=== PATIENT | female | born 1950 | race American Indian/Alaskan Native ===

== ENCOUNTER 2016-10-20 16:52 | Inpatient (IN) | payer MEDICARE ==
[2016-10-20] MEDS ORDERED: BUMEX IV ONE (18:06)
--- NOTE | 2016-10-20 18:06 | Emergency Department Report ---
HPI - General Chief Complaint: Dyspnea/Respdistress Time Seen by Provider: 10/20/16 17:44 - HPI HPI: 66-year-old -[place] female, presents to ER with severe lower extremity swelling, abdominal area swelling, shortness of breath. She stated her symptoms have been going on since Monday 3 days ago, but have gotten worse today. Patient is bed bound due to weakness, and is currently receiving physical therapy for this symptom. Patient will, irrigated medical history including high blood pressure, hepatitis C, CHF, chronic back pain requiring Dilaudid at home. Patient had a hospitalization in July and August 2016 for similar symptoms. After that hospitalization she went to rehabilitation, but still has not walked. ED Past Medical Hx - Past Medical History Previous Medical History?: Yes Hx Hypertension: Yes Hx Congestive Heart Failure: Yes Hx Liver Disease: Yes (HEP C) Hx COPD: Yes Additional medical history: AFIB - Surgical History Past Surgical History?: Yes - Family History Family history: hypertension - Social History Smoking Status: Former Smoker Substance Use Type: None - Medications Home Medications: Home Medications Medication Instructions Recorded Confirmed Last Taken Type Carvedilol Nicu (1.67 mg/ml) 25 mg PO BID 10/20/16 10/20/16 Unknown History [Coreg NICU dilution] Hydromorphone HCl [Dilaudid] 1 tab PO DAILY 10/20/16 10/20/16 Unknown History Ondansetron HCl [Ondansetron HCl] 1 tab PO DAILY 10/20/16 10/20/16 Unknown History Warfarin [Coumadin] 2 mg PO QDAY 10/20/16 10/20/16 Unknown History fentaNYL [fentaNYL] 1 each TRANSDERMA UNK 10/20/16 10/20/16 Unknown History ED Review of Systems ROS: Stated complaint: DIFFICULTY BREATHING/SWELLING Other details as noted in HPI Comment: All other systems reviewed and negative Cardiovascular: chest pain, dyspnea on exertion, orthopnea, edema, paroxysmal nocturnal dyspnea Gastrointestinal: as per HPI Genitourinary: as per HPI Physical Exam - Physical Exam Vital Signs: Vital Signs 10/20/16 17:36 Temperature 98.2 F Pulse Rate 80 Respiratory 18 Rate Blood Pressure 131/87 O2 Sat by Pulse 96 Oximetry Physical Exam: Gen. alert and oriented 3 in no distress, obese patient, appears obviously swollen Head atraumatic normocephalic Eyes PERR LA EOMI Chest regular rate and rhythm normal S1-S2 lungs decreased breath sound bilaterally Abdomen soft, soft tissue distention, no tenderness. Back no point tenderness paravertebral tenderness Neuro decreased upper and lower extremity strength, nonambulatory. Psych normal mood. Extremities: greater than 4+ edema bilaterally ED Course Vital Signs 10/20/16 17:36 Temperature 98.2 F Pulse Rate 80 Respiratory 18 Rate Blood Pressure 131/87 O2 Sat by Pulse 96 Oximetry - Reevaluation(s) Reevaluation #1: 10/20/16 18:05 Nurses reports that she was unable to obtain IV access after several tries. ER Dea placed a right EJ IV access without difficulty. Patient tolerated procedure well. ED Medical Decision Making - Lab Data Result diagrams: 10/20/16 18:00 10/20/16 18:00 Critical care attestation.: If time is entered above; I have spent that time in minutes in the direct care of this critically ill patient, excluding procedure time. ED Disposition Clinical Impression: Acute exacerbation of CHF (congestive heart failure) Disposition: OP ADMIT IP TO THIS HOSP Is pt being admited?: Yes Does the pt Need Aspirin: No Condition: Stable Referrals: PRIMARY CARE, [Primary Care Provider] - 3-5 Days
[2016-10-20 18:22] LABS: Basophils % (Auto) 0.4 % (0.0-1.8); Eosinophils % (Auto) 1.8 % (0.0-4.3); Mean Corpuscular HGB Conc 30 % (30-34); Mean Corpuscular Hemoglobin 27 pg (28-32); Mean Corpuscular Volume 90 fl (79-97); Platelet Count 146 K/mm3 (140-440); Red Blood Count 3.92 M/mm3 (3.65-5.03); Red Cell Distribution Width 17.7 % (13.2-15.2); White Blood Count 5.7 K/mm3 (4.5-11.0)
[2016-10-20 18:32] LABS: INR 2.01 (0.87-1.13)
[2016-10-20 18:33] LABS: Partial Thromboplastin Time 38.1 Sec. (24.2-36.6)
[2016-10-20 18:34] LABS: Hematocrit 35.2 % (30.3-42.9); Hemoglobin 10.7 gm/dl (10.1-14.3)
[2016-10-20 18:51] LABS: BUN/Creatinine Ratio 23.7; Calcium 7.8 mg/dL (8.4-10.2); Chloride 98.4 mmol/L (98-107); Potassium 4.3 mmol/L (3.6-5.0)
[2016-10-20 18:56] LABS: Creatine Kinase 132 units/L (30-135)
--- NOTE | 2016-10-20 19:09 | Admit Criteria Form ---
Admission Criteria Documentation: HEART FAILURE: COMMON COMPLICATIONS Clinical Indications for Inpatient Care (inaja/check or initial the applicable condition/criteria): Ongoing inpatient care may be indicated for heart failure with 1 or more of the following (1)(2)(3)(4)(5)(6)(7)(8): [ ]I. New-onset heart failure [ ]II. Acute cardiac ischemia causing or associated with failure [ ]III. Ongoing need for care for primary condition requiring frequent therapy adjustments because of changes in cardiac function (eg, drug dosage changes for drugs that are renally metabolized) [X ]IV. Complications of heart failure, including 1 or more of the following: [ ]a) Hemodynamic instability [ ]b) Pericardial effusion [ ]c) Symptomatic pleural effusion(16) [ ]d) Hypoxemia [ ]e) Tachypnea [X]f) Dyspnea [ ]g) Syncope [ ]h) Altered mental status [ ]i) Acute renal insufficiency that is severe (reduction of more than 50% in estimated glomerular filtration rate from baseline) or progressive (reduction of more than 25% in estimated glomerular filtration rate from baseline, with creatinine continuing to rise) [ ]j) Debilitating anasarca (eg tissue breakdown with infection, inability to void due to edema)(E) (17) [ ]k) Clinically significant metabolic abnormalities due to heart failure (e.g., new-onset metabolic acidosis) Extended stay may be needed until ALL of the following are present(1)(3)(18)(41) (55): [ ]a) Hemodynamic stability [ ]b) Stable and effective diuretic regimen established (or patient on stable dialysis regimen if in chronic renal failure) [ ]c) Volume status acceptable on oral medication [ ]d) Breathing comfortably at rest [ ]e) Saturation of arterial oxygen greater than 90% or at acceptable baseline [ ]f) Pulmonary edema absent or improved [ ]g) Peripheral or sacral edema absent or improved [ ]h) Renal function stable and manageable at a lower level of care [ ]i) Complications (e.g., pleural effusion) resolved or manageable at a lower level of care [ ]j) Patient or caregiver has received written discharge instructions or educational material addressing activity level, diet, discharge medications, follow-up appointment, weight monitoring, and what to do if symptoms worsen. (56)(57)(58) The original [facility] [employer] content created by Alee Saab has been revised. The portions of the content which have been revised are identified through the use of italic text or in bold, and Alee Saab has neither reviewed nor approved the modified material.All other unmodified content is copyright [facility] [employer]. Please see references footnoted in the original [facility] edition 2017 Admission Criteria Met: Yes
[2016-10-20] MEDS ORDERED: DILAUDID IV ONE (19:58)
--- NOTE | 2016-10-20 23:44 | History and Physical Report ---
History of Present Illness Date of examination: 10/20/16 History of present illness: 66-year-old man with a history of CHF, hypertension, COPD, hep C, A. everton comes emergency room with complaints of diffuse swelling all over, shortness of breath , PND, dyspnea on exertion. States that she is compliant with her medications Review of systems Constitutional: no fever, no chills, no weight loss Ears, eyes, nose, mouth and throat: no nasal congestion, no nasal discharge, no sinus pressure, no vision change, no red eye. Neck: No neck pain or rigidity. Cardiovascular: chest pain, no palpitations, no leg swelling Respiratory: No cough, no congestion, no wheezing Gastrointestinal: abdominal pain, hematochezia, no nausea, no vomiting Genitourinary : no dysuria, frequency , no hematuria Musculoskeletal: no joint swelling or muscle ache Integumentary: no rash, no pruritis Neurological: no parathesias, no numbness, no focal weakness Endocrine: no cold or heat intolerance, no polyuria or polydipsia Hematologic/Lymphatic: no easy bruising, no easy bleeding, no gland swelling Allergic/Immunologic: no urticaria, no angioedema. PAST MEDICAL HISTORY:CHF, hypertension, COPD, hep C, A. fib PAST SURGICAL HISTORY: Hernia repair FAMILY HISTORY: Hypertension SOCIAL HISTORY: Denies alcohol, tobacco, drugs Medications and Allergies Allergies Allergy/AdvReac Type Severity Reaction Status Date / Time zolpidem tartrate Allergy Unknown Verified 10/20/16 17:42 [From Ambien] codeine AdvReac Unknown Verified 10/20/16 17:42 Home Medications Medication Instructions Recorded Confirmed Last Taken Type Carvedilol Nicu (1.67 mg/ml) 25 mg PO BID 10/20/16 10/20/16 Unknown History [Coreg NICU dilution] Hydromorphone HCl [Dilaudid] 1 tab PO DAILY 10/20/16 10/20/16 Unknown History Ondansetron HCl [Ondansetron HCl] 1 tab PO DAILY 10/20/16 10/20/16 Unknown History Warfarin [Coumadin] 2 mg PO QDAY 10/20/16 10/20/16 Unknown History fentaNYL [fentaNYL] 1 each TRANSDERMA UNK 10/20/16 10/20/16 Unknown History Exam - Physical Exam Narrative exam: Gen. appearance: Patient lying in bed, no apparent distress HEENT: Normocephalic, atraumatic, pupils equally round and reactive to light, extraocular movement intact, and no sclericterus,. No JVD or thyromegaly or nodule,neck supple, no carotid bruit ,mucous membranes moist, no exudate or erythema Heart: S1, S2, regular rate and rhythm Lungs: Crackles bilaterally, breathing comfortable Abdomen: Positive bowel sounds, nontender, nondistended, no organomegaly Extremity: + edema, no cyanosis, clubbing Skin: No rash, nodules, warm, dry Neuro: Oriented 3, cranial nerves II-12 intact, speech is fluent, motor and sensory intact - Constitutional Vitals: Temp Pulse Resp BP Pulse Ox 98.2 F 72 10 L 126/63 100 10/20/16 17:36 10/20/16 22:58 10/20/16 22:58 10/20/16 22:58 10/20/16 22:58 Results - Labs CBC & Chem 7: 10/21/16 05:46 10/21/16 05:46 Labs: Abnormal lab results 10/20/16 10/20/16 10/20/16 Range/Units 18:00 18:00 18:00 MCH 27 L (28-32) pg RDW 17.7 H (13.2-15.2) % Lymph % (Auto) 11.9 L (13.4-35.0) % [place] % (Auto) 11.2 H (0.0-7.3) % Lymph # 0.7 L (1.2-5.4) K/mm3 Seg Neutrophils % 74.7 H (40.0-70.0) % PT 23.8 H (12.2-14.9) Sec. INR 2.01 H (0.87-1.13) APTT 38.1 H (24.2-36.6) Sec. BUN 64 H (7-17) mg/dL Creatinine 2.7 H (0.7-1.2) mg/dL Glucose 126 H (65-100) mg/dL Calcium 7.8 L (8.4-10.2) mg/dL NT-Pro-B Natriuret Pep (0-900) pg/mL 10/20/16 Range/Units 18:00 MCH (28-32) pg RDW (13.2-15.2) % Lymph % (Auto) (13.4-35.0) % [place] % (Auto) (0.0-7.3) % Lymph # (1.2-5.4) K/mm3 Seg Neutrophils % (40.0-70.0) % PT (12.2-14.9) Sec. INR (0.87-1.13) APTT (24.2-36.6) Sec. BUN (7-17) mg/dL Creatinine (0.7-1.2) mg/dL Glucose (65-100) mg/dL Calcium (8.4-10.2) mg/dL NT-Pro-B Natriuret Pep 6946 H (0-900) pg/mL - Imaging and Cardiology EKG: image reviewed Chest x-ray: image reviewed Assessment and Plan Assessment Acute on chronic heart failure, probably systolic A. fib on Coumadin Chronic kidney disease Hypertension COPD Plan Admit to medicine Diuresed with IV Lasix, start beta blaze, CHRIS inhibitor, aspirin Monitor I's and O's, daily weights Check cardiac enzymes, consult cardiology Give a dose of Coumadin, check PT/INR Continue appropriate outpatient medications
[2016-10-20] MEDS ORDERED: COUMADIN PO ONE (23:51)
[2016-10-20] MEDS ORDERED: MILK OF MAGNESIA PO PRN (23:51)
[2016-10-20] MEDS ORDERED: ZOFRAN IV PRN (23:51)
[2016-10-20] MEDS ORDERED: DULCOLAX PR PRN (23:51)
[2016-10-21] MEDS: PERCOCET 5/325 PO PRN ×2 (02:36→22:45)
[2016-10-21 06:55] LABS: Basophils % (Auto) 0.6 % (0.0-1.8); Eosinophils % (Auto) 1.7 % (0.0-4.3); Hemoglobin 10.5 gm/dl (10.1-14.3); Mean Corpuscular HGB Conc 31 % (30-34); Mean Corpuscular Hemoglobin 27 pg (28-32); Mean Corpuscular Volume 89 fl (79-97); Platelet Count 139 K/mm3 (140-440); Red Blood Count 3.83 M/mm3 (3.65-5.03); Red Cell Distribution Width 17.9 % (13.2-15.2); White Blood Count 4.5 K/mm3 (4.5-11.0)
[2016-10-21 07:08] LABS: INR 1.97 (0.87-1.13); Partial Thromboplastin Time 39.9 Sec. (24.2-36.6)
[2016-10-21 07:16] LABS: BUN/Creatinine Ratio 25.83; Calcium 7.8 mg/dL (8.4-10.2); Chloride 100.8 mmol/L (98-107)
--- NOTE | 2016-10-21 07:47 | XRay Report ---
AP CHEST: HISTORY: Shortness of breath Cardiomegaly, pulmonary venous congestion and trace bilateral pleural effusions are suspected. No evidence for pneumonia or pneumothorax. The bony structures are grossly normal. IMPRESSION: Mild CHF.
[2016-10-21 07:49] LABS: Potassium 4.5 mmol/L (3.6-5.0)
[2016-10-21] MEDS ORDERED: CARVEDILOL PO SCH (10:00)
[2016-10-21] MEDS: COREG PO SCH ×2 (10:37→22:45)
--- NOTE | 2016-10-21 13:16 | Consultation ---
History of Present Illness Consult date: 10/21/16 Consult reason: congestive heart failure History of present illness: This is a 66yr old woman who reports a history of chronic Kidney Disease, Hepatitis C, COPD, Hypertension, morbid obesity and Diastolic Heart failure. She also has atrial fibrillation and takes warfarin for anticoagulation. She was brought to this hospital with complaints shortness of breath and generalized edema. Patient reports a weight gain of at least 20lbs. She associates her shortness of breath with coughs and congestion. She denies chest pain. There is no fever. Admits to compliance with medications Her low voltage EKG shows atrial fibrillation with a well controlled ventricular rate. Chest x- ray reports mild CHF. Initial labs done in the ED shows an INR of 2.0 and a creatinine of 2.7. Cardiology consultation was requested for CHF. Medications and Allergies Allergies Allergy/AdvReac Type Severity Reaction Status Date / Time zolpidem tartrate Allergy Unknown Verified 10/20/16 17:42 [From Ambien] codeine AdvReac Unknown Verified 10/20/16 17:42 Home Medications Medication Instructions Recorded Confirmed Last Taken Type Carvedilol Nicu (1.67 mg/ml) 25 mg PO BID 10/20/16 10/20/16 Unknown History [Coreg NICU dilution] Hydromorphone HCl [Dilaudid] 1 tab PO DAILY 10/20/16 10/20/16 Unknown History Ondansetron HCl [Ondansetron HCl] 1 tab PO DAILY 10/20/16 10/20/16 Unknown History Warfarin [Coumadin] 2 mg PO QDAY 10/20/16 10/20/16 Unknown History fentaNYL [fentaNYL] 1 each TRANSDERMA UNK 10/20/16 10/20/16 Unknown History Active Meds: Active Medications Acetaminophen (Tylenol) 650 mg PO Q4H PRN PRN Reason: Pain MILD(1-3)/Fever >100.5/MORALES Bisacodyl (Dulcolax) 10 mg [place] QDAY PRN PRN Reason: Constipation unrelieved by MOM Carvedilol (Coreg) 25 mg PO BID [facility] Last Admin: 10/21/16 10:37 Dose: 25 mg Magnesium Hydroxide (Milk Of Magnesia) 30 ml PO Q4H PRN PRN Reason: Constipation Ondansetron HCl (Zofran) 4 mg IV Q8H PRN PRN Reason: N/V unrelieved by Reglan Oxycodone/Acetaminophen (Percocet 5/325) 1 tab PO Q6H PRN PRN Reason: Pain, Moderate (4-6) Last Admin: 10/21/16 02:36 Dose: 1 tab Warfarin Sodium (Coumadin Pharmacy To Dose) 1 each PO PKCONSULT [facility] PRN Reason: Protocol Warfarin Sodium (Coumadin) 2 mg PO DAILY@1700 [place] Physical Examination Vital Signs Temp Pulse Resp BP Pulse Ox 98.2 F 80 18 131/87 96 10/20/16 17:36 10/20/16 17:36 10/20/16 17:36 10/20/16 17:36 10/20/16 17:36 General appearance: no acute distress, obese Cardiac: Positive: irregularly irregular Results 10/21/16 05:46 10/21/16 05:46 Coagulation 10/21/16 Range/Units 05:46 PT 23.5 H (12.2-14.9) Sec. INR 1.97 H (0.87-1.13) APTT 39.9 H (24.2-36.6) Sec. CBC 10/21/16 Range/Units 05:46 WBC 4.5 (4.5-11.0) K/mm3 RBC 3.83 (3.65-5.03) M/mm3 Hgb 10.5 (10.1-14.3) gm/dl Hct 34.0 (30.3-42.9) % Plt Count 139 L (140-440) K/mm3 Lymph # 0.7 L (1.2-5.4) K/mm3 [place] # 0.5 (0.0-0.8) K/mm3 Eos # 0.1 (0.0-0.4) K/mm3 Baso # 0.0 (0.0-0.1) K/mm3 Comprehensive Metabolic Panel 10/21/16 Range/Units 05:46 Sodium 144 D (137-145) mmol/L Potassium 4.5 (3.6-5.0) mmol/L Chloride 100.8 (98-107) mmol/L Carbon Dioxide 30 (22-30) mmol/L BUN 62 H (7-17) mg/dL Creatinine 2.4 H (0.7-1.2) mg/dL Glucose 148 H (65-100) mg/dL Calcium 7.8 L (8.4-10.2) mg/dL Assessment and Plan Diastolic heart failure COPD Hypertension Hx of Hepatitis C Morbidly obese Chronic kidney disease (baseline creatinine of 2.4) follows with Dr Whittaker Mitral stenosis -moderate RHC 07/2016 at [place] EDP 33 RA 21 RVSP 52 PA 39 PCWP 29 cardiac index 2.37 moderate mitral stenosis MV mean gradient 5.5 mm Hg 1.85cm valve area Recommendations: IV diuretics for heart failure with a preserved EF. Nephrology consultation for renal disease
--- NOTE | 2016-10-21 15:31 | Consultation ---
History of Present Illness - Reason for Consult Consult date: 10/21/16 chronic renal failure Requesting physician: LORI CHISHOLM - History of Present Illness This is a 66 yo AAF with patient medical history of morbid obesity, hypertension, chronic hepatitis C, chronic diastolic HF, COPD, atrial fibrillation on anticoagulation, CKD stage 4 with baseline Cr around 1.44 - 1.6mg in the recent past, who lost CKD f/u with Dr Whittaker for several years, also hospitalized several times this year at [facility] for A-fib with RVR and acute HF , now presenting to [facility] ER with complaints of severe lower extremity swelling, increasing abdominal girth leading to shortness of breath, dyspnea on exertion, orthopnea, starting Monday then progressively worsening. She reportedly gained more than 20lbs over the last few weeks. Pt denies fever, chills, nausea, vomiting, diarrhea, dysuria, CP, palpitations, rash, denies recent NSAIDs use. Pt however underwent CT chest with IV contrast in 08/2016 to rule out PE at [facility], which did not reveal evidence of PE. Past History Past Medical History: atrial fib, heart failure, hepatitis, hypertension, liver disease, renal failure Past Surgical History: hysterectomy (w/ tubal ligation ), Other (back surgery) Social history: denies: smoking, alcohol abuse, prescription drug abuse, IV drug use Family history: cancer (father, sister - not further specified ) Medications and Allergies Allergies Allergy/AdvReac Type Severity Reaction Status Date / Time zolpidem tartrate Allergy Unknown Verified 10/20/16 17:42 [From Ambien] codeine AdvReac Unknown Verified 10/20/16 17:42 Home Medications Medication Instructions Recorded Confirmed Last Taken Type Carvedilol Nicu (1.67 mg/ml) 25 mg PO BID 10/20/16 10/20/16 Unknown History [Coreg NICU dilution] Hydromorphone HCl [Dilaudid] 1 tab PO DAILY 10/20/16 10/20/16 Unknown History Ondansetron HCl [Ondansetron HCl] 1 tab PO DAILY 10/20/16 10/20/16 Unknown History Warfarin [Coumadin] 2 mg PO QDAY 10/20/16 10/20/16 Unknown History fentaNYL [fentaNYL] 1 each TRANSDERMA UNK 10/20/16 10/20/16 Unknown History Active Meds: Active Medications Acetaminophen (Tylenol) 650 mg PO Q4H PRN PRN Reason: Pain MILD(1-3)/Fever >100.5/MORALES Bisacodyl (Dulcolax) 10 mg [place] QDAY PRN PRN Reason: Constipation unrelieved by MOM Bumetanide (Bumex) 2 mg PO Q12H [facility] Carvedilol (Coreg) 25 mg PO BID [facility] Last Admin: 10/21/16 10:37 Dose: 25 mg Magnesium Hydroxide (Milk Of Magnesia) 30 ml PO Q4H PRN PRN Reason: Constipation Metolazone (Zaroxolyn) 5 mg PO QDAY [facility] Ondansetron HCl (Zofran) 4 mg IV Q8H PRN PRN Reason: N/V unrelieved by Reglan Oxycodone/Acetaminophen (Percocet 5/325) 1 tab PO Q6H PRN PRN Reason: Pain, Moderate (4-6) Last Admin: 10/21/16 02:36 Dose: 1 tab Warfarin Sodium (Coumadin Pharmacy To Dose) 1 each PO PKCONSULT [facility] PRN Reason: Protocol Warfarin Sodium (Coumadin) 2 mg PO DAILY@1700 [facility] Review of Systems All systems: negative Constitutional: weight gain, fatigue, weakness Cardiovascular: orthopnea, edema, shortness of breath, dyspnea on exertion, paroxysmal nocturnal dyspnea, leg edema Respiratory: shortness of breath, dyspnea on exertion Exam - Vital Signs Vital signs: Vital Signs Temp Pulse Resp BP Pulse Ox 98.2 F 80 18 131/87 96 10/20/16 17:36 10/20/16 17:36 10/20/16 17:36 10/20/16 17:36 10/20/16 17:36 - General Appearance General appearance: appears stated age, obese, moderate distress EENT: ATNC, PERRL, mucous membranes moist Neck: Present: neck supple Respiratory: Rales, Decreased Breath Sounds Heart: regular, S1S2 Gastrointestinal: Present: normoactive bowel sounds, obese Integumentary: no rash, other (2+ edema b/l LE ) Neurologic: no focal deficit, alert and oriented x3, strength 5/5, CN 3-12 intact Psychiatric: mood/affect appropriate, cooperative Results - Lab Results 10/21/16 05:46 10/21/16 05:46 Most recent lab results Calcium 7.8 mg/dL (8.4-10.2) L 10/21/16 05:46 Laboratory Tests 10/20/16 10/20/16 10/20/16 18:00 18:00 18:00 PT 23.8 H INR 2.01 H APTT 38.1 H Ammonia Total Creatine Kinase 132 Troponin T 0.024 NT-Pro-B Natriuret Pep 6946 H 10/21/16 10/21/16 05:46 11:48 PT 23.5 H INR 1.97 H APTT 39.9 H Ammonia 37.0 Total Creatine Kinase Troponin T NT-Pro-B Natriuret Pep Assessment and Plan assessment: 1. Acute kidney injury superimpose on CKD, likely due to acute cardiorenal syndrome. contrast induced nephropathy could have contributed to recent decline in eGFR 2. acute on chronic diastolic HF 3. history of severe MV stensis 4. morbid obesity 5. h/o hep C 6. Hypertension 7. A-fib Plan/recommendations: - IV diuresis with bumex 2mg po bid along with metolazone 5mg po qd. will target net negative fluid balance >1L/day, and adjust diuretic if target not met - strict I/Os, daily weight, discussed Na/fluid restriction. - cont supportive care for SALMA avoid further nephrotoxins, NSAIDs, IV contrast - check urine lytes, UA, urine protein/cr ratio - check renal US if renal function does not improve on diuretic therapy - BP controlled currently, monitor on current meds - will check lytes/renal parameters and make further recommendations
--- NOTE | 2016-10-21 15:33 | Progress Note ---
Assessment and Plan Assessment and plan: --Acute on chronic diastolic congestive heart failure Continue current anti-failure medications --Acute on chronic kidney disease stage III Gentle hydration, closely monitor renal function, avoid nephrotoxic medications Diastolic heart failure --History of COPD Oxygen nebulizer treatments and IV steroids and IV antibiotics if needed --Moderate mitral stenosis --History of hepatitis C --Morbid obesity; counseling and patient strongly advised diet modification and exercise as tolerated and weight reduction Patient would benefit by outpatient bariatric surgical evaluation for weight reduction program when medically stable --DVT prophylaxis with Lovenox Closely monitor the patient and adjust management as needed Plan of care discussed with the patient and her nurse Follow consults and recommendations Possible discharge in 1-2 days if stable History Interval history: Patient seen and evaluated in her room this morning medical records reviewed Patient complaints of shortness of breath, denies chest pain Alert awake Oriented 3 not in acute distress Morbidly obese, not in acute distress Hospitalist Physical - Constitutional Vitals: Temp Pulse Resp BP Pulse Ox 98.7 F 83 20 131/69 98 10/21/16 12:45 10/21/16 12:45 10/21/16 12:45 10/21/16 12:45 10/21/16 12:45 General appearance: Present: no acute distress, well-nourished, obese (morbidly obese) - EENT Eyes: Present: PERRL, EOM intact - Neck Neck: Present: supple, normal ROM - Respiratory Respiratory effort: normal Respiratory: bilateral: diminished, negative: rales, rhonchi, wheezing - Cardiovascular Rhythm: regular Heart Sounds: Present: S1 & S2 - Extremities Extremities: no ischemia, abnormal (obese) Extremity abnormal: edema - Abdominal General gastrointestinal: soft, non-tender, non-distended, normal bowel sounds - Integumentary Integumentary: Present: clear, warm - Psychiatric Psychiatric: appropriate mood/affect, cooperative - Neurologic Neurologic: CNII-XII intact, moves all extremities Results - Labs CBC & Chem 7: 10/21/16 05:46 10/21/16 05:46 Labs: Laboratory Last Values WBC 4.5 K/mm3 (4.5-11.0) 10/21/16 05:46 RBC 3.83 M/mm3 (3.65-5.03) 10/21/16 05:46 Hgb 10.5 gm/dl (10.1-14.3) 10/21/16 05:46 Hct 34.0 % (30.3-42.9) 10/21/16 05:46 MCV 89 fl (79-97) 10/21/16 05:46 MCH 27 pg (28-32) L 10/21/16 05:46 MCHC 31 % (30-34) 10/21/16 05:46 RDW 17.9 % (13.2-15.2) H 10/21/16 05:46 Plt Count 139 K/mm3 (140-440) L 10/21/16 05:46 Lymph % (Auto) 15.4 % (13.4-35.0) 10/21/16 05:46 [place] % (Auto) 12.1 % (0.0-7.3) H 10/21/16 05:46 Eos % (Auto) 1.7 % (0.0-4.3) 10/21/16 05:46 Baso % (Auto) 0.6 % (0.0-1.8) 10/21/16 05:46 Lymph # 0.7 K/mm3 (1.2-5.4) L 10/21/16 05:46 [place] # 0.5 K/mm3 (0.0-0.8) 10/21/16 05:46 Eos # 0.1 K/mm3 (0.0-0.4) 10/21/16 05:46 Baso # 0.0 K/mm3 (0.0-0.1) 10/21/16 05:46 Seg Neutrophils % 70.2 % (40.0-70.0) H 10/21/16 05:46 Seg Neutrophils # 3.2 K/mm3 (1.8-7.7) 10/21/16 05:46 PT 23.5 Sec. (12.2-14.9) H 10/21/16 05:46 INR 1.97 (0.87-1.13) H 10/21/16 05:46 APTT 39.9 Sec. (24.2-36.6) H 10/21/16 05:46 Sodium 144 mmol/L (137-145) D 10/21/16 05:46 Potassium 4.5 mmol/L (3.6-5.0) 10/21/16 05:46 Chloride 100.8 mmol/L (98-107) 10/21/16 05:46 Carbon Dioxide 30 mmol/L (22-30) 10/21/16 05:46 Anion Gap 18 mmol/L 10/21/16 05:46 BUN 62 mg/dL (7-17) H 10/21/16 05:46 Creatinine 2.4 mg/dL (0.7-1.2) H 10/21/16 05:46 Estimated GFR 24 ml/min 10/21/16 05:46 BUN/Creatinine Ratio 25.83 % 10/21/16 05:46 Glucose 148 mg/dL (65-100) H 10/21/16 05:46 Calcium 7.8 mg/dL (8.4-10.2) L 10/21/16 05:46 Ammonia 37.0 umol/L (25-60) 10/21/16 11:48 Total Creatine Kinase 132 units/L (30-135) 10/20/16 18:00 Troponin T 0.024 ng/mL (0.00-0.029) 10/20/16 18:00 NT-Pro-B Natriuret Pep 6946 pg/mL (0-900) H 10/20/16 18:00
[2016-10-21] MEDS: BUMEX PO SCH (16:29)
[2016-10-21] MEDS: ZAROXOLYN PO SCH (16:29)
[2016-10-21] MEDS: COUMADIN PO SCH (16:33)
[2016-10-22 01:36] LABS: BUN/Creatinine Ratio 29.47; Calcium 8.2 mg/dL (8.4-10.2)
[2016-10-22 01:45] LABS: Chloride 101.8 mmol/L (98-107); Potassium 3.7 mmol/L (3.6-5.0)
[2016-10-22] MEDS: BUMEX PO SCH ×2 (05:14→14:35)
[2016-10-22 05:52] LABS: INR 2.02 (0.87-1.13)
--- NOTE | 2016-10-22 09:29 | Progress Note ---
Assessment and Plan Acute on chronic diastolic heart failure with secondary pulmonary hypertension Chronic persistent atrial fibrillation rate controlled Coumadin therapy INR therapeutic Hepatitis C induced liver cirrhosis Chronic renal failure (creatinine 2.4 at [place] 08/2016) Morbid obesity Recommendations: Continue aggressive diuresis with high-dose Bumex and metolazone Continue same dose of Coreg and warfarin No further cardiac workup at this time Subjective Date of service: 10/22/16 Interval history: No events overnight Objective Vital Signs Temp Pulse Pulse Resp BP Pulse Ox 10/22/16 06:55 86 10/22/16 04:00 98.4 F 86 18 132/78 98 10/22/16 00:43 98.0 F 126 H 18 129/86 98 10/21/16 22:45 133 H 150/92 10/21/16 20:52 98 10/21/16 20:00 98.2 F 133 H 18 150/92 96 10/21/16 17:46 98.4 F 125 H 20 125/93 100 10/21/16 12:45 98.7 F 83 20 131/69 98 10/21/16 10:37 94 H 105/77 10/21/16 10:00 73 94 H 20 98 - Physical Examination Narrative exam: GEN: NAD, morbidly obese HEENT: Carotids 2+ NECK: SUPPLE, CVS: RRR, NORMAL S1S2 LUNGS/CHEST: CTA ABD: SOFT, MSK: FROM X 4 EXTREMITIES NEURO: CN 2-12 GROSSLY INTACT, NO FOCAL DEFICITS PSY: CALM Extremities 3+ edema n Neck: Positive: neck supple - Labs and Meds Coagulation 10/22/16 Range/Units 04:12 PT 23.9 H (12.2-14.9) Sec. INR 2.02 H (0.87-1.13) Comprehensive Metabolic Panel 10/22/16 Range/Units 00:30 Sodium 144 (137-145) mmol/L Potassium 3.7 (3.6-5.0) mmol/L Chloride 101.8 (98-107) mmol/L Carbon Dioxide 29 (22-30) mmol/L BUN 56 H (7-17) mg/dL Creatinine 1.9 H (0.7-1.2) mg/dL Glucose 166 H (65-100) mg/dL Calcium 8.2 L (8.4-10.2) mg/dL - Imaging and Cardiology EKG: image reviewed
[2016-10-22] MEDS: ZAROXOLYN PO SCH (10:30)
[2016-10-22] MEDS: COREG PO SCH ×2 (10:30→21:36)
--- NOTE | 2016-10-22 10:49 | Progress Note ---
Assessment and Plan - Patient Problems (1) Other acute kidney failure Current Visit: Yes Status: Acute Plan to address problem: Continue gentle diuresis. Follow-up electrolytes and renal function (2) Chronic kidney disease, stage III (moderate) Current Visit: Yes Status: Acute Plan to address problem: Avoid potential nephrotoxins. (3) Acute on chronic diastolic heart failure Current Visit: Yes Status: Acute Plan to address problem: Continue gentle diuresis. (4) Hypertensive chronic kidney disease with stage 1 through stage 4 chronic kidney disease, or unspecified chronic kidney disease Current Visit: Yes Status: Acute Plan to address problem: Follow-up blood pressure on current medications (5) Cirrhosis of liver Current Visit: Yes Status: Acute Qualifiers: Hepatic cirrhosis type: H Ascites presence: A Plan to address problem: Get right upper quadrant ultrasound with the pain/tenderness right upper quadrant. Possibly congestive hepatopathy (6) Morbid obesity Current Visit: Yes Status: Acute Plan to address problem: Long-term weight loss Subjective Date of service: 10/22/16 Principal diagnosis: acute kidney injury Interval history: Patient seen lying in bed. She feels better today. Shortness of breath improving. Still swollen but better Objective - Exam Narrative Exam: [Elderly -Haitian female lying in bed] in no acute distress HEENT [normocephalic atraumatic, pupils equal reactive to light, pink, clear oropharynx] Neck [supple, no thyromegaly no jugular venous distention] CVS [S1-S2 regular rate rhythm without murmur, rub or gallop] Chest [diminished breath sounds] Abdomen [obese, soft, right upper quadrant tenderness, no organomegaly no bruit bowel sounds present] Extremities [2+ edema no cyanosis or clubbing] Genitourinary [deferred] Neuro [awake, alert oriented x3 no gross deficit] - Vital Signs Vital signs: Vital Signs - 12hr 10/22/16 10/22/16 10/22/16 00:43 04:00 06:55 Temperature 98.0 F 98.4 F Pulse Rate 126 H 86 86 Respiratory 18 18 Rate Blood Pressure 129/86 132/78 O2 Sat by Pulse 98 98 Oximetry 10/22/16 10/22/16 08:40 10:30 Temperature 99.2 F Pulse Rate 84 84 Respiratory 20 Rate Blood Pressure 126/75 130/64 O2 Sat by Pulse 98 Oximetry - Lab 10/21/16 05:46 10/22/16 00:30 Most recent lab results Calcium 8.2 mg/dL (8.4-10.2) L 10/22/16 00:30
[2016-10-22] MEDS: PERCOCET 5/325 PO PRN ×2 (11:05→21:36)
--- NOTE | 2016-10-22 17:47 | Progress Note ---
Assessment and Plan Assessment and plan: --Acute on chronic diastolic congestive heart failure Cardiology evaluation noted and appreciated, rice to continue current management , no further cardiac workup --Acute on chronic kidney disease stage III Gentle hydration, renal function slightly improved continue gentle hydration, nephrology following --History of COPD Oxygen nebulizer treatments and IV steroids and IV antibiotics if needed -- A. fib; rate controlled continue current beta blockers cardiology following --Chronic anticoagulation with Coumadin, INR therapeutic between 2 and 3 --Moderate mitral stenosis --History of hepatitis C --Morbid obesity; counseling and patient strongly advised diet modification and exercise as tolerated and weight reduction Patient would benefit by outpatient bariatric surgical evaluation for weight reduction program when medically stable --DVT prophylaxis with Lovenox As the monitor the patient and adjust management as needed Assessment and treatment plan reviewed with the patient at the bedside Out of bed to chair and ambulate as tolerated possible discharge in 1-2 days if stable History Interval history: Patient seen and evaluated medical records reviewed No new events reported by the nursing staff Denies chest pain or shortness of breath, alert awake oriented 3 not in acute distress Vital signs reviewed Hospitalist Physical - Constitutional Vitals: Temp Pulse Resp BP Pulse Ox 98.9 F 70 20 120/57 97 10/22/16 11:20 10/22/16 11:20 10/22/16 11:20 10/22/16 11:20 10/22/16 11:20 General appearance: Present: no acute distress, well-nourished, obese (morbidly obese) - EENT Eyes: Present: PERRL, EOM intact - Neck Neck: Present: supple, normal ROM - Respiratory Respiratory effort: normal Respiratory: bilateral: diminished, negative: rales, rhonchi, wheezing - Cardiovascular Rhythm: regular Heart Sounds: Present: S1 & S2 - Extremities Extremities: no ischemia Extremity abnormal: edema - Abdominal General gastrointestinal: soft, non-tender, non-distended, normal bowel sounds - Integumentary Integumentary: Present: clear, warm - Psychiatric Psychiatric: appropriate mood/affect, cooperative - Neurologic Neurologic: CNII-XII intact Results - Labs CBC & Chem 7: 10/21/16 05:46 10/22/16 00:30 Labs: Laboratory Last Values WBC 4.5 K/mm3 (4.5-11.0) 10/21/16 05:46 RBC 3.83 M/mm3 (3.65-5.03) 10/21/16 05:46 Hgb 10.5 gm/dl (10.1-14.3) 10/21/16 05:46 Hct 34.0 % (30.3-42.9) 10/21/16 05:46 MCV 89 fl (79-97) 10/21/16 05:46 MCH 27 pg (28-32) L 10/21/16 05:46 MCHC 31 % (30-34) 10/21/16 05:46 RDW 17.9 % (13.2-15.2) H 10/21/16 05:46 Plt Count 139 K/mm3 (140-440) L 10/21/16 05:46 Lymph % (Auto) 15.4 % (13.4-35.0) 10/21/16 05:46 [place] % (Auto) 12.1 % (0.0-7.3) H 10/21/16 05:46 Eos % (Auto) 1.7 % (0.0-4.3) 10/21/16 05:46 Baso % (Auto) 0.6 % (0.0-1.8) 10/21/16 05:46 Lymph # 0.7 K/mm3 (1.2-5.4) L 10/21/16 05:46 [place] # 0.5 K/mm3 (0.0-0.8) 10/21/16 05:46 Eos # 0.1 K/mm3 (0.0-0.4) 10/21/16 05:46 Baso # 0.0 K/mm3 (0.0-0.1) 10/21/16 05:46 Seg Neutrophils % 70.2 % (40.0-70.0) H 10/21/16 05:46 Seg Neutrophils # 3.2 K/mm3 (1.8-7.7) 10/21/16 05:46 PT 23.9 Sec. (12.2-14.9) H 10/22/16 04:12 INR 2.02 (0.87-1.13) H 10/22/16 04:12 APTT 39.9 Sec. (24.2-36.6) H 10/21/16 05:46 Sodium 144 mmol/L (137-145) 10/22/16 00:30 Potassium 3.7 mmol/L (3.6-5.0) 10/22/16 00:30 Chloride 101.8 mmol/L (98-107) 10/22/16 00:30 Carbon Dioxide 29 mmol/L (22-30) 10/22/16 00:30 Anion Gap 17 mmol/L 10/22/16 00:30 BUN 56 mg/dL (7-17) H 10/22/16 00:30 Creatinine 1.9 mg/dL (0.7-1.2) H 10/22/16 00:30 Estimated GFR 32 ml/min 10/22/16 00:30 BUN/Creatinine Ratio 29.47 % 10/22/16 00:30 Glucose 166 mg/dL (65-100) H 10/22/16 00:30 POC Glucose 154 (70-105) H 10/22/16 16:26 Calcium 8.2 mg/dL (8.4-10.2) L 10/22/16 00:30 Ammonia 37.0 umol/L (25-60) 10/21/16 11:48 Total Creatine Kinase 132 units/L (30-135) 10/20/16 18:00 Troponin T 0.024 ng/mL (0.00-0.029) 10/20/16 18:00 NT-Pro-B Natriuret Pep 6946 pg/mL (0-900) H 10/20/16 18:00
[2016-10-22] MEDS: COUMADIN PO SCH (17:50)
[2016-10-22 21:16] LABS: Bacteria,Urine 1+ /HPF (Negative); Bilirubin,Urine NEG (Negative); Blood,Urine SM (Negative); Ketones,Urine NEG (Negative); Leukocyte Esterase,Urine LG (Negative); Mucus,Urine FEW /HPF; Nitrite,Urine NEG (Negative); Protein,Urine <15 mg/dL mg/dL (Negative); Urobilinogen,Urine < 2.0 mg/dL (<2.0)
[2016-10-23] MEDS: BUMEX PO SCH ×2 (04:35→13:31)
[2016-10-23] MEDS: PERCOCET 5/325 PO PRN ×2 (04:35→13:31)
[2016-10-23 09:19] LABS: BUN/Creatinine Ratio 31.17; Calcium 7.8 mg/dL (8.4-10.2)
[2016-10-23 09:20] LABS: Chloride 99.6 mmol/L (98-107); Magnesium 1.9 mg/dL (1.7-2.3); Phosphorous 3.5 mg/dL (2.5-4.5); Potassium 3.3 mmol/L (3.6-5.0)
[2016-10-23 09:39] LABS: INR 1.85 (0.87-1.13)
[2016-10-23] MEDS ORDERED: K-DUR PO ONE (10:00)
[2016-10-23] MEDS: COREG PO SCH ×2 (10:29→22:21)
[2016-10-23] MEDS: ZAROXOLYN PO SCH (10:30)
--- NOTE | 2016-10-23 10:37 | Progress Note ---
Assessment and Plan Acute on chronic diastolic heart failure with secondary pulmonary hypertension resolved Chronic persistent atrial fibrillation rate controlled Coumadin therapy INR therapeutic Hepatitis C induced liver cirrhosis Chronic renal failure (creatinine 2.4 at [place] 08/2016) Morbid obesity Recommendations: Continue aggressive diuresis with high-dose Bumex and metolazone Continue same dose of Coreg and warfarin INR mildly reduced today No further cardiac workup at this time Subjective Date of service: 10/23/16 Principal diagnosis: acute kidney injury Interval history: No events overnight Objective Vital Signs Temp Pulse Pulse Resp BP Pulse Ox 10/23/16 10:29 117 H 150/95 10/23/16 09:56 98.9 F 117 H 18 150/95 96 10/23/16 08:20 98.7 F 108 H 22 129/70 90 10/23/16 04:59 99.6 F 102 H 18 132/69 100 10/23/16 04:35 20 10/23/16 01:05 76 97 10/23/16 01:01 84 10/23/16 00:14 98.9 F 84 20 148/78 98 10/22/16 23:42 76 10/22/16 22:00 100 10/22/16 21:36 76 20 140/92 10/22/16 20:16 99.6 F 76 18 140/92 100 10/22/16 11:20 98.9 F 70 20 120/57 97 - Physical Examination Narrative exam: GEN: NAD, morbidly obese HEENT: Carotids 2+ NECK: SUPPLE, CVS: RRR, NORMAL S1S2 LUNGS/CHEST: CTA ABD: SOFT, MSK: FROM X 4 EXTREMITIES NEURO: CN 2-12 GROSSLY INTACT, NO FOCAL DEFICITS PSY: CALM Extremities 3+ edema n Neck: Positive: neck supple - Labs and Meds Coagulation 10/23/16 Range/Units 08:38 PT 22.3 H (12.2-14.9) Sec. INR 1.85 H (0.87-1.13) Comprehensive Metabolic Panel 10/23/16 Range/Units 08:38 Sodium 145 (137-145) mmol/L Potassium 3.3 L (3.6-5.0) mmol/L Chloride 99.6 (98-107) mmol/L Carbon Dioxide 34 H (22-30) mmol/L BUN 53 H (7-17) mg/dL Creatinine 1.7 H (0.7-1.2) mg/dL Glucose 138 H (65-100) mg/dL Calcium 7.8 L (8.4-10.2) mg/dL - Imaging and Cardiology EKG: image reviewed
--- NOTE | 2016-10-23 12:10 | Progress Note ---
Assessment and Plan Assessment and plan: -- A. fib; rate controlled continue current beta blockers cardiology following Patient has brief episodes of palpitations, the time of my evaluation patient's heart rate is < 100 --Acute on chronic diastolic congestive heart failure Cardiology evaluation noted and appreciated, rice to continue current management , no further cardiac workup --Acute on chronic kidney disease stage III Significant improvement of renal function Continue Gentle hydration, avoid nephrotoxic medications ,nephrology following --History of COPD Oxygen nebulizer treatments and IV steroids and IV antibiotics if needed --Chronic anticoagulation with Coumadin, INR therapeutic between 2 and 3 --Moderate mitral stenosis --History of hepatitis C --Morbid obesity; counseling and patient strongly advised diet modification and exercise as tolerated and weight reduction Patient would benefit by outpatient bariatric surgical evaluation for weight reduction program when medically stable --DVT prophylaxis with Lovenox --DC planning per case management --Full CODE STATUS As the monitor the patient and adjust management as needed Assessment and treatment plan reviewed with the patient at the bedside Out of bed to chair and ambulate as tolerated possible discharge in 1-2 days if stable History Interval history: She was seen and evaluated in her room this morning medical records reviewed Patient feels better, vital signs stable Hospitalist Physical - Constitutional Vitals: Temp Pulse Resp BP Pulse Ox 98.9 F 117 H 18 150/95 96 10/23/16 09:56 10/23/16 10:29 10/23/16 09:56 10/23/16 10:29 10/23/16 09:56 General appearance: Present: no acute distress, well-nourished, obese (morbidly obese) - EENT Eyes: Present: PERRL, EOM intact - Neck Neck: Present: supple, normal ROM - Respiratory Respiratory effort: normal Respiratory: bilateral: diminished, negative: rales, rhonchi, wheezing - Cardiovascular Rhythm: irregularly irregular Heart Sounds: Present: S1 & S2 - Extremities Extremities: no ischemia, abnormal (obese, chronic edema) Extremity abnormal: edema - Abdominal General gastrointestinal: soft, non-tender, non-distended, normal bowel sounds - Integumentary Integumentary: Present: clear, warm - Psychiatric Psychiatric: appropriate mood/affect, cooperative - Neurologic Neurologic: CNII-XII intact, moves all extremities Results - Labs CBC & Chem 7: 10/21/16 05:46 10/23/16 08:38 Labs: Laboratory Last Values WBC 4.5 K/mm3 (4.5-11.0) 10/21/16 05:46 RBC 3.83 M/mm3 (3.65-5.03) 10/21/16 05:46 Hgb 10.5 gm/dl (10.1-14.3) 10/21/16 05:46 Hct 34.0 % (30.3-42.9) 10/21/16 05:46 MCV 89 fl (79-97) 10/21/16 05:46 MCH 27 pg (28-32) L 10/21/16 05:46 MCHC 31 % (30-34) 10/21/16 05:46 RDW 17.9 % (13.2-15.2) H 10/21/16 05:46 Plt Count 139 K/mm3 (140-440) L 10/21/16 05:46 Lymph % (Auto) 15.4 % (13.4-35.0) 10/21/16 05:46 [place] % (Auto) 12.1 % (0.0-7.3) H 10/21/16 05:46 Eos % (Auto) 1.7 % (0.0-4.3) 10/21/16 05:46 Baso % (Auto) 0.6 % (0.0-1.8) 10/21/16 05:46 Lymph # 0.7 K/mm3 (1.2-5.4) L 10/21/16 05:46 [place] # 0.5 K/mm3 (0.0-0.8) 10/21/16 05:46 Eos # 0.1 K/mm3 (0.0-0.4) 10/21/16 05:46 Baso # 0.0 K/mm3 (0.0-0.1) 10/21/16 05:46 Seg Neutrophils % 70.2 % (40.0-70.0) H 10/21/16 05:46 Seg Neutrophils # 3.2 K/mm3 (1.8-7.7) 10/21/16 05:46 PT 22.3 Sec. (12.2-14.9) H 10/23/16 08:38 INR 1.85 (0.87-1.13) H 10/23/16 08:38 APTT 39.9 Sec. (24.2-36.6) H 10/21/16 05:46 Sodium 145 mmol/L (137-145) 10/23/16 08:38 Potassium 3.3 mmol/L (3.6-5.0) L 10/23/16 08:38 Chloride 99.6 mmol/L (98-107) 10/23/16 08:38 Carbon Dioxide 34 mmol/L (22-30) H 10/23/16 08:38 Anion Gap 15 mmol/L 10/23/16 08:38 BUN 53 mg/dL (7-17) H 10/23/16 08:38 Creatinine 1.7 mg/dL (0.7-1.2) H 10/23/16 08:38 Estimated GFR 36 ml/min 10/23/16 08:38 BUN/Creatinine Ratio 31.17 % 10/23/16 08:38 Glucose 138 mg/dL (65-100) H 10/23/16 08:38 POC Glucose 160 (70-105) H 10/23/16 08:29 Calcium 7.8 mg/dL (8.4-10.2) L 10/23/16 08:38 Phosphorus 3.50 mg/dL (2.5-4.5) 10/23/16 08:38 Magnesium 1.90 mg/dL (1.7-2.3) 10/23/16 08:38 Ammonia 37.0 umol/L (25-60) 10/21/16 11:48 Total Creatine Kinase 132 units/L (30-135) 10/20/16 18:00 Troponin T 0.024 ng/mL (0.00-0.029) 10/20/16 18:00 NT-Pro-B Natriuret Pep 6946 pg/mL (0-900) H 10/20/16 18:00 Urine Color Straw (Yellow) 10/22/16 06:35 Urine Turbidity Clear (Clear) 10/22/16 06:35 Urine pH 6.0 (5.0-7.0) 10/22/16 06:35 Ur Specific [place] 1.006 (1.003-1.030) 10/22/16 06:35 Urine Protein <15 mg/dl mg/dL (Negative) 10/22/16 06:35 Urine Glucose (UA) Neg mg/dL (Negative) 10/22/16 06:35 Urine Ketones Neg mg/dL (Negative) 10/22/16 06:35 Urine Blood Sm (Negative) 10/22/16 06:35 Urine Nitrite Neg (Negative) 10/22/16 06:35 Urine Bilirubin Neg (Negative) 10/22/16 06:35 Urine Urobilinogen < 2.0 mg/dL (<2.0) 10/22/16 06:35 Ur Leukocyte Esterase Lg (Negative) 10/22/16 06:35 Urine WBC (Auto) 20.0 /HPF (0.0-6.0) H 10/22/16 06:35 Urine RBC (Auto) 2.0 /HPF (0.0-6.0) 10/22/16 06:35 U Epithel Cells (Auto) 1.0 /HPF (0-13.0) 10/22/16 06:35 Urine Bacteria (Auto) 1+ /HPF (Negative) 10/22/16 06:35 Urine Mucus Few /HPF 10/22/16 06:35 Urine Osmolality 333 Mosm/kg 10/22/16 06:35 Urine Creatinine 17.3 mg/dL (0.1-20.0) 10/22/16 06:35 Urine Sodium 119 mEq/L 10/22/16 06:35 Urine Total Protein 4 mg/dL (5-11.8) L 10/22/16 06:35
--- NOTE | 2016-10-23 16:15 | Progress Note ---
Assessment and Plan - Patient Problems (1) Other acute kidney failure Current Visit: Yes Status: Acute Plan to address problem: Kidney function is not significantly changed. Continue gentle diuresis. Follow -up electrolytes and renal function (2) Acute exacerbation of chronic bronchitis Current Visit: Yes Status: Acute Plan to address problem: Patient developing fever. Cough productive of yellow sputum. Get sputum culture. Start empiric antibiotics. (3) Chronic kidney disease, stage III (moderate) Current Visit: Yes Status: Acute Plan to address problem: Avoid potential nephrotoxins. (4) Acute on chronic diastolic heart failure Current Visit: Yes Status: Acute Plan to address problem: Continue gentle diuresis. (5) Hypertensive chronic kidney disease with stage 1 through stage 4 chronic kidney disease, or unspecified chronic kidney disease Current Visit: Yes Status: Acute Plan to address problem: Follow-up blood pressure on current medications (6) Cirrhosis of liver Current Visit: Yes Status: Acute Qualifiers: Hepatic cirrhosis type: H Ascites presence: A Plan to address problem: Get right upper quadrant ultrasound with the pain/tenderness right upper quadrant. Possibly congestive hepatopathy (7) Morbid obesity Current Visit: Yes Status: Acute Plan to address problem: Long-term weight loss Subjective Date of service: 10/23/16 Principal diagnosis: acute kidney injury Interval history: Patient seen lying in bed. She does not feel better today. Patient coughing overnights. Cough productive of yellowish sputum. Also complains of Shortness of breath. Still swollen but better Objective - Exam Narrative Exam: Elderly -Turkish female lying in bed in no acute distress HEENT normocephalic atraumatic, pupils equal reactive to light, pink, clear oropharynx Neck supple, no thyromegaly no jugular venous distention CVS S1-S2 regular rate rhythm without murmur, rub or gallop Chest diminished breath sounds Abdomen obese, soft, right upper quadrant tenderness, no organomegaly no bruit bowel sounds present Extremities 2+ edema no cyanosis or clubbing Genitourinary deferred Neuro awake, alert oriented x3 no gross deficit - Vital Signs Vital signs: Vital Signs - 12hr 10/23/16 10/23/16 10/23/16 04:35 04:59 07:16 Temperature 99.6 F Pulse Rate 102 H 93 H Respiratory 20 18 Rate Blood Pressure 132/69 O2 Sat by Pulse 100 Oximetry 10/23/16 10/23/16 10/23/16 08:20 09:56 10:00 Temperature 98.7 F 98.9 F Pulse Rate 108 H 117 H Respiratory 22 18 Rate Blood Pressure 129/70 150/95 O2 Sat by Pulse 90 96 98 Oximetry 10/23/16 10/23/16 10:29 11:35 Temperature 100.0 F H Pulse Rate 117 H 110 H Respiratory 24 Rate Blood Pressure 150/95 168/81 O2 Sat by Pulse 97 Oximetry - Lab 10/21/16 05:46 10/23/16 08:38 Most recent lab results Calcium 7.8 mg/dL (8.4-10.2) L 10/23/16 08:38 Phosphorus 3.50 mg/dL (2.5-4.5) 10/23/16 08:38 Magnesium 1.90 mg/dL (1.7-2.3) 10/23/16 08:38 Urine Creatinine 17.3 mg/dL (0.1-20.0) 10/22/16 06:35 Urine Sodium 119 mEq/L 10/22/16 06:35 Urine Total Protein 4 mg/dL (5-11.8) L 10/22/16 06:35
[2016-10-23] MEDS: COUMADIN PO SCH (17:53)
[2016-10-23] MEDS: LEVAQUIN PO SCH (17:53)
[2016-10-24] MEDS: NOVOLOG SUB-Q SCH ×5 (01:08→22:00)
[2016-10-24] MEDS: BUMEX PO SCH ×2 (01:14→14:50)
[2016-10-24 06:17] LABS: BUN/Creatinine Ratio 34.28; Calcium 8.1 mg/dL (8.4-10.2); Chloride 97.2 mmol/L (98-107); Magnesium 1.7 mg/dL (1.7-2.3); Potassium 3.3 mmol/L (3.6-5.0)
[2016-10-24 06:22] LABS: INR 1.92 (0.87-1.13)
--- NOTE | 2016-10-24 07:15 | Progress Note ---
Assessment and Plan Assessment and plan: --Acalculous cholecystitis on abdominal ultrasound Clear liquid diet, supportive care, surgical consultation, discussed with --Hypokalemia; replenish per protocol and monitor levels -- A. fib; rate controlled continue current beta blockers cardiology following Patient has brief episodes of palpitations, the time of my evaluation patient's heart rate is < 100 --Acute on chronic diastolic congestive heart failure Cardiology evaluation noted and appreciated, rice to continue current management , no further cardiac workup --Acute on chronic kidney disease stage III Significant improvement of renal function Continue Gentle hydration, avoid nephrotoxic medications ,nephrology following --History of COPD Oxygen nebulizer treatments and IV steroids and IV antibiotics if needed --Chronic anticoagulation with Coumadin, INR therapeutic between 2 and 3 --Moderate mitral stenosis --History of hepatitis C --Morbid obesity; counseling and patient strongly advised diet modification and exercise as tolerated and weight reduction Patient would benefit by outpatient bariatric surgical evaluation for weight reduction program when medically stable --DVT prophylaxis with Lovenox --DC planning per case management, possible placement versus home with home health at discharge --Full CODE STATUS Follow surgical evaluation and recommendations Plan of care discussed with the patient as well as her nurse and case management History Interval history: Patient seen and evaluated this morning medical records reviewed Complaints of right upper quadrant pain, abdominal ultrasound consistent with acalculous cholecystitis We'll consult surgery, change the diet to clear liquids as tolerated Patient has mild nausea no vomiting Hospitalist Physical - Constitutional Vitals: Temp Pulse Resp BP Pulse Ox 99.6 F 106 H 22 145/75 98 10/24/16 05:36 10/24/16 05:36 10/24/16 05:36 10/24/16 05:36 10/24/16 05:36 General appearance: Present: no acute distress, well-nourished, obese (morbidly obese) - EENT Eyes: Present: PERRL, EOM intact - Neck Neck: Present: supple, normal ROM - Respiratory Respiratory effort: normal Respiratory: bilateral: diminished, negative: rales, rhonchi, wheezing - Cardiovascular Rhythm: regular Heart Sounds: Present: S1 & S2 - Extremities Extremities: no ischemia Extremity abnormal: edema, other (obese) - Abdominal General gastrointestinal: soft, non-tender, non-distended, normal bowel sounds - Integumentary Integumentary: Present: clear, warm - Psychiatric Psychiatric: appropriate mood/affect, cooperative - Neurologic Neurologic: CNII-XII intact, moves all extremities Results - Labs CBC & Chem 7: 10/21/16 05:46 10/24/16 21:42 Labs: Laboratory Last Values WBC 4.5 K/mm3 (4.5-11.0) 10/21/16 05:46 RBC 3.83 M/mm3 (3.65-5.03) 10/21/16 05:46 Hgb 10.5 gm/dl (10.1-14.3) 10/21/16 05:46 Hct 34.0 % (30.3-42.9) 10/21/16 05:46 MCV 89 fl (79-97) 10/21/16 05:46 MCH 27 pg (28-32) L 10/21/16 05:46 MCHC 31 % (30-34) 10/21/16 05:46 RDW 17.9 % (13.2-15.2) H 10/21/16 05:46 Plt Count 139 K/mm3 (140-440) L 10/21/16 05:46 Lymph % (Auto) 15.4 % (13.4-35.0) 10/21/16 05:46 [place] % (Auto) 12.1 % (0.0-7.3) H 10/21/16 05:46 Eos % (Auto) 1.7 % (0.0-4.3) 10/21/16 05:46 Baso % (Auto) 0.6 % (0.0-1.8) 10/21/16 05:46 Lymph # 0.7 K/mm3 (1.2-5.4) L 10/21/16 05:46 [place] # 0.5 K/mm3 (0.0-0.8) 10/21/16 05:46 Eos # 0.1 K/mm3 (0.0-0.4) 10/21/16 05:46 Baso # 0.0 K/mm3 (0.0-0.1) 10/21/16 05:46 Seg Neutrophils % 70.2 % (40.0-70.0) H 10/21/16 05:46 Seg Neutrophils # 3.2 K/mm3 (1.8-7.7) 10/21/16 05:46 PT 23.0 Sec. (12.2-14.9) H 10/24/16 05:00 INR 1.92 (0.87-1.13) H 10/24/16 05:00 APTT 39.9 Sec. (24.2-36.6) H 10/21/16 05:46 Sodium 147 mmol/L (137-145) H 10/24/16 04:00 Potassium 3.3 mmol/L (3.6-5.0) L 10/24/16 04:00 Chloride 97.2 mmol/L (98-107) L 10/24/16 04:00 Carbon Dioxide 38 mmol/L (22-30) H 10/24/16 04:00 Anion Gap 15 mmol/L 10/24/16 04:00 BUN 48 mg/dL (7-17) H 10/24/16 04:00 Creatinine 1.4 mg/dL (0.7-1.2) H 10/24/16 04:00 Estimated GFR 45 ml/min 10/24/16 04:00 BUN/Creatinine Ratio 34.28 % 10/24/16 04:00 Glucose 104 mg/dL (65-100) H 10/24/16 04:00 POC Glucose 167 (70-105) H 10/23/16 18:29 Calcium 8.1 mg/dL (8.4-10.2) L 10/24/16 04:00 Phosphorus 3.50 mg/dL (2.5-4.5) 10/23/16 08:38 Magnesium 1.70 mg/dL (1.7-2.3) 10/24/16 04:00 Ammonia 37.0 umol/L (25-60) 10/21/16 11:48 Total Creatine Kinase 132 units/L (30-135) 10/20/16 18:00 Troponin T 0.024 ng/mL (0.00-0.029) 10/20/16 18:00 NT-Pro-B Natriuret Pep 6946 pg/mL (0-900) H 10/20/16 18:00 Urine Color Straw (Yellow) 10/22/16 06:35 Urine Turbidity Clear (Clear) 10/22/16 06:35 Urine pH 6.0 (5.0-7.0) 10/22/16 06:35 Ur Specific [place] 1.006 (1.003-1.030) 10/22/16 06:35 Urine Protein <15 mg/dl mg/dL (Negative) 10/22/16 06:35 Urine Glucose (UA) Neg mg/dL (Negative) 10/22/16 06:35 Urine Ketones Neg mg/dL (Negative) 10/22/16 06:35 Urine Blood Sm (Negative) 10/22/16 06:35 Urine Nitrite Neg (Negative) 10/22/16 06:35 Urine Bilirubin Neg (Negative) 10/22/16 06:35 Urine Urobilinogen < 2.0 mg/dL (<2.0) 10/22/16 06:35 Ur Leukocyte Esterase Lg (Negative) 10/22/16 06:35 Urine WBC (Auto) 20.0 /HPF (0.0-6.0) H 10/22/16 06:35 Urine RBC (Auto) 2.0 /HPF (0.0-6.0) 10/22/16 06:35 U Epithel Cells (Auto) 1.0 /HPF (0-13.0) 10/22/16 06:35 Urine Bacteria (Auto) 1+ /HPF (Negative) 10/22/16 06:35 Urine Mucus Few /HPF 10/22/16 06:35 Urine Osmolality 333 Mosm/kg 10/22/16 06:35 Urine Creatinine 17.3 mg/dL (0.1-20.0) 10/22/16 06:35 Urine Sodium 119 mEq/L 10/22/16 06:35 Urine Total Protein 4 mg/dL (5-11.8) L 10/22/16 06:35
--- NOTE | 2016-10-24 08:40 | Ultrasound Report ---
Limited abdominal ultrasound: Right upper quadrant pain. Images of the liver and pancreas are unremarkable. There is marked thickening of the gallbladder wall measuring approximately 4 mm with foci of pericholecystic fluid. No gallstones identified. The CBD diameter is 2.6 mm. The right renal length is 11.8 cm and the kidney is echogenically unremarkable. The transverse diameter of the proximal abdominal aorta is 1.6 cm. There is a right pleural effusion. Impression: The findings are suspicious for non-calculus cholecystitis.
[2016-10-24] MEDS: ZAROXOLYN PO SCH (09:46)
[2016-10-24] MEDS: COREG PO SCH ×2 (09:46→21:10)
[2016-10-24] MEDS: LEVAQUIN PO SCH (09:46)
--- NOTE | 2016-10-24 10:58 | Progress Note ---
Assessment and Plan Acute on chronic Diastolic heart failure with secondary pulmonary hypertension COPD Hypertension Hx of Hepatitis C Morbidly obese Chronic kidney disease (creatinine of 2.4 at [place] 08/2016) Mitral stenosis -moderate Chronic persistent atrial fibrillation rate controlled on coumadin therapy as an outpatient Recommendations: Continue aggressive diuresis with high-dose Bumex and metolazone. Fluid restriction. Strict intake an output. Daily weight. Subjective Date of service: 10/24/16 Principal diagnosis: acute kidney injury Interval history: Patient reports her breathing is better. Complains of coughs and congestion. Objective Vital Signs Temp Pulse Resp BP Pulse Ox 10/24/16 09:46 78 130/44 10/24/16 09:45 98.3 F 78 20 130/44 90 10/24/16 07:43 96 10/24/16 05:36 99.6 F 106 H 22 145/75 98 10/24/16 00:48 99.5 F 102 H 20 137/81 97 10/24/16 00:19 99.5 F 102 H 20 137/81 97 10/23/16 22:21 108 H 170/85 10/23/16 21:16 98 10/23/16 20:52 99.6 F 108 H 20 170/85 98 10/23/16 18:25 98.9 F 112 H 26 H 142/95 97 10/23/16 11:35 100.0 F H 110 H 24 168/81 97 - Physical Examination General: No Apparent Distress HEENT: Positive: PERRL Cardiac: Positive: irregularly irregular Lungs: Positive: Decreased Breath Sounds Extremities: Present: +1 Edema - Labs and Meds Coagulation 10/24/16 Range/Units 05:00 PT 23.0 H (12.2-14.9) Sec. INR 1.92 H (0.87-1.13) Comprehensive Metabolic Panel 10/24/16 Range/Units 04:00 Sodium 147 H (137-145) mmol/L Potassium 3.3 L (3.6-5.0) mmol/L Chloride 97.2 L (98-107) mmol/L Carbon Dioxide 38 H (22-30) mmol/L BUN 48 H (7-17) mg/dL Creatinine 1.4 H (0.7-1.2) mg/dL Glucose 104 H (65-100) mg/dL Calcium 8.1 L (8.4-10.2) mg/dL - Imaging and Cardiology EKG: image reviewed
--- NOTE | 2016-10-24 11:23 | XRay Report ---
Portable chest: Fever, cough. Comparison is made to the recent study of October 20. The heart is big and there is current vascular congestion that appears more prominent prior study. New increased parenchymal opacity is present in the mid and lower right lung. Impression: The findings are consistent with CHF. Right pulmonary pneumonia however cannot be excluded in the right chest.
[2016-10-24] MEDS ORDERED: ZOFRAN IV ONE (11:59)
[2016-10-24] MEDS ORDERED: K-DUR PO ONE (13:00)
[2016-10-24] MEDS: PERCOCET 5/325 PO PRN ×2 (13:22→21:10)
--- NOTE | 2016-10-24 13:32 | Progress Note ---
Assessment and Plan (1) Acute kidney failure Current Visit: Yes Status: Acute Plan to address problem: CR improving(peak 2.7) now at 1.4. Continue diuretics. Follow-up electrolytes and renal function (2) Acute exacerbation of chronic bronchitis Current Visit: Yes Status: Acute Plan to address problem: Management per primary team (3) Chronic kidney disease, stage III (moderate) Current Visit: Yes Status: Acute Plan to address problem: Avoid potential nephrotoxins. (4) Acute on chronic diastolic heart failure Current Visit: Yes Status: Acute Plan to address problem: Continue gentle diuresis. (5) Hypertensive chronic kidney disease with stage 1 through stage 4 chronic kidney disease, or unspecified chronic kidney disease Current Visit: Yes Status: Acute Plan to address problem: Follow-up blood pressure on current medications (6) Hypokalemia Current Visit: Yes Status: Acute Qualifiers: Hepatic cirrhosis type: H Ascites presence: A Plan to address problem: Replete potassium, check magnesium (7) Hypernatremia Current Visit: Yes Status: Acute Plan to address problem: Will monitor sodium level closely Long-term weight loss Subjective Date of service: 10/24/16 Principal diagnosis: acute kidney injury Interval history: No New changes, SOB less. + cough Objective - Exam Narrative Exam: Elderly -[place]ovenian female lying in bed in no acute distress HEENT normocephalic atraumatic, pupils equal reactive to light, pink, clear oropharynx Neck supple, no thyromegaly no jugular venous distention CVS S1-S2 regular rate rhythm without murmur, rub or gallop Chest diminished breath sounds, few rales b/L Abdomen obese, soft, right upper quadrant tenderness, no organomegaly no bruit bowel sounds present Extremities 2+ edema no cyanosis or clubbing Genitourinary deferred Neuro awake, alert oriented x3 no gross deficit - Vital Signs Vital signs: Vital Signs - 12hr 10/24/16 10/24/16 10/24/16 05:36 07:43 09:45 Temperature 99.6 F 98.3 F Pulse Rate 106 H 78 Respiratory 22 20 Rate Blood Pressure 145/75 130/44 O2 Sat by Pulse 98 96 90 Oximetry 10/24/16 09:46 Temperature Pulse Rate 78 Respiratory Rate Blood Pressure 130/44 O2 Sat by Pulse Oximetry - Lab 10/21/16 05:46 10/24/16 04:00 Most recent lab results Calcium 8.1 mg/dL (8.4-10.2) L 10/24/16 04:00 Phosphorus 3.50 mg/dL (2.5-4.5) 10/23/16 08:38 Magnesium 1.70 mg/dL (1.7-2.3) 10/24/16 04:00 Urine Creatinine 17.3 mg/dL (0.1-20.0) 10/22/16 06:35 Urine Sodium 119 mEq/L 10/22/16 06:35 Urine Total Protein 4 mg/dL (5-11.8) L 10/22/16 06:35
[2016-10-24] MEDS: COUMADIN PO SCH (17:28)
--- NOTE | 2016-10-24 17:32 | Consultation ---
History of Present Illness Consult date: 10/24/16 Reason for consult: abdominal pain Chief complaint: multiple complaints, chronic back pain, right upper quadrant pain, lateral abd wall. - History of present illness History of present illness: This is a complicated morbidly obese female with a hx of cirrohsis of the liver (formerly followed by Dr. Smith/ transplant liver GI doc at [place]),chronic Hep C, morbid obesity, chronic back pain who also has a hx of CHF who was admitted with CHF sx, she gradually improved and then complained or right upper quadrant pain, Her WBC is normal, I can not locate any LFTs, and an ultrasound done of the right upper quadrant demonstrates a gallbladder wall thickness of 4mm, question of focus of pericholecystic fluid, no stones , rule out acalculous cholecystitis by Dr. Kessler (radiologys report). Past History Past Medical History: atrial fib, heart failure, hepatitis, hypertension, liver disease, renal failure Past Surgical History: hysterectomy (w/ tubal ligation ), Other (back surgery) Social history: denies: smoking, alcohol abuse, prescription drug abuse, IV drug use Family history: cancer (father, sister - not further specified ) Medications and Allergies Allergies Allergy/AdvReac Type Severity Reaction Status Date / Time zolpidem tartrate Allergy Unknown Verified 10/20/16 17:42 [From Ambien] codeine AdvReac Unknown Verified 10/20/16 17:42 Home Medications Medication Instructions Recorded Confirmed Last Taken Type Carvedilol Nicu (1.67 mg/ml) 25 mg PO BID 10/20/16 10/20/16 Unknown History [Coreg NICU dilution] Hydromorphone HCl [Dilaudid] 1 tab PO DAILY 10/20/16 10/20/16 Unknown History Ondansetron HCl [Ondansetron HCl] 1 tab PO DAILY 10/20/16 10/20/16 Unknown History Warfarin [Coumadin] 2 mg PO QDAY 10/20/16 10/20/16 Unknown History fentaNYL [fentaNYL] 1 each TRANSDERMA UNK 10/20/16 10/20/16 Unknown History Active Meds: Active Medications Acetaminophen (Tylenol) 650 mg PO Q4H PRN PRN Reason: Pain MILD(1-3)/Fever >100.5/MORALES Bisacodyl (Dulcolax) 10 mg CA QDAY PRN PRN Reason: Constipation unrelieved by MOM Bumetanide (Bumex) 2 mg PO Q12H [facility] Last Admin: 10/24/16 14:50 Dose: 2 mg Carvedilol (Coreg) 25 mg PO BID [facility] Last Admin: 10/24/16 09:46 Dose: 25 mg Insulin Aspart (Novolog) 0 units SUB-Q ACHS [facility] PRN Reason: Protocol Last Admin: 10/24/16 12:24 Dose: Not Given Levofloxacin (Levaquin) 250 mg PO Q24HR [facility] Last Admin: 10/24/16 09:46 Dose: 250 mg Metolazone (Zaroxolyn) 5 mg PO QDAY [facility] Last Admin: 10/24/16 09:46 Dose: 5 mg Oxycodone/Acetaminophen (Percocet 5/325) 1 tab PO Q6H PRN PRN Reason: Pain, Moderate (4-6) Last Admin: 10/24/16 13:22 Dose: 1 tab Warfarin Sodium (Coumadin Pharmacy To Dose) 1 each PO PKCONSULT [facility] PRN Reason: Protocol Warfarin Sodium (Coumadin) 2.5 mg PO DAILY@1700 [facility] Review of Systems - Gastrointestinal abdominal pain Exam Vital Signs Temp Pulse Resp BP Pulse Ox 98.2 F 80 18 131/87 96 10/20/16 17:36 10/20/16 17:36 10/20/16 17:36 10/20/16 17:36 10/20/16 17:36 - General physical appearance Positive: no distress - Eyes Positive: PERRL, normal occular movement - ENT Positive: normal pinna, normal nares, normal mucosa, no hearing loss, no congestion - Neck Positive: no masses, no bruits, trachea midline, no venous distension - Respiratory Positive: clear to auscultation, other (decreased BS at bases.) - Cardiovascular Rhythm: irregularly irregular - Extremities Extremities: no ischemia - Abdomen Abdomen: Present: soft (no rebound or guarding, negative Thakkar's sign.Morbidly obese), bowel sounds normal Hernia: none - Neurologic Neurologic: alert and oriented to time, place and person, motor strength and sensation are grossly intact - Psychiatric Psychiatric: appropriate mood/affect, intact judgment & insight Results - Labs 10/21/16 05:46 10/24/16 04:00 Abnormal lab results 10/23/16 10/23/1617 Range/Units 18:29 21:27 04:00 PT (12.2-14.9) Sec. INR (0.87-1.13) Sodium 147 H (137-145) mmol/L Potassium 3.3 L (3.6-5.0) mmol/L Chloride 97.2 L (98-107) mmol/L Carbon Dioxide 38 H (22-30) mmol/L BUN 48 H (7-17) mg/dL Creatinine 1.4 H (0.7-1.2) mg/dL Glucose 104 H (65-100) mg/dL POC Glucose 167 H 300 H (70-105) Calcium 8.1 L (8.4-10.2) mg/dL 10/24/16 10/24/16 10/24/16 Range/Units 05:00 09:38 12:17 PT 23.0 H (12.2-14.9) Sec. INR 1.92 H (0.87-1.13) Sodium (137-145) mmol/L Potassium (3.6-5.0) mmol/L Chloride (98-107) mmol/L Carbon Dioxide (22-30) mmol/L BUN (7-17) mg/dL Creatinine (0.7-1.2) mg/dL Glucose (65-100) mg/dL POC Glucose 120 H 131 H (70-105) Calcium (8.4-10.2) mg/dL Diabetes panel 10/24/16 Range/Units 04:00 Sodium 147 H (137-145) mmol/L Potassium 3.3 L (3.6-5.0) mmol/L Chloride 97.2 L (98-107) mmol/L Carbon Dioxide 38 H (22-30) mmol/L BUN 48 H (7-17) mg/dL Creatinine 1.4 H (0.7-1.2) mg/dL Glucose 104 H (65-100) mg/dL Calcium 8.1 L (8.4-10.2) mg/dL Calcium panel 10/24/16 Range/Units 04:00 Calcium 8.1 L (8.4-10.2) mg/dL Pituitary panel 10/24/16 Range/Units 04:00 Sodium 147 H (137-145) mmol/L Potassium 3.3 L (3.6-5.0) mmol/L Chloride 97.2 L (98-107) mmol/L Carbon Dioxide 38 H (22-30) mmol/L BUN 48 H (7-17) mg/dL Creatinine 1.4 H (0.7-1.2) mg/dL Glucose 104 H (65-100) mg/dL Calcium 8.1 L (8.4-10.2) mg/dL Adrenal panel 10/24/16 Range/Units 04:00 Sodium 147 H (137-145) mmol/L Potassium 3.3 L (3.6-5.0) mmol/L Chloride 97.2 L (98-107) mmol/L Carbon Dioxide 38 H (22-30) mmol/L BUN 48 H (7-17) mg/dL Creatinine 1.4 H (0.7-1.2) mg/dL Glucose 104 H (65-100) mg/dL Calcium 8.1 L (8.4-10.2) mg/dL Assessment and Plan Complex case, if acalculous cholecystitis is of concern, recc HIDA scan, I do not think this patient has acute acalculous cholecytitis but a Hida scan will help rule it out, However chronic cholecystitis can cause non vis of GB on HIDA as well. This patient is extremely high risk for any type of surgical intervention, I will order LFTs but I suspect she has advanced liver cirrohsis from her Hep C. If surgery is considered this patient should be transfered to [place], where all of her care has been for the last several years. I spoke with the patient about all of this. She seems to be tolerating her full liquid diet with no problem. Her physical exam is benign. Her WBC is normal.
[2016-10-24 22:45] LABS: Albumin 2.3 g/dL (3.9-5); Albumin/Globulin Ratio 0.5 %; BUN/Creatinine Ratio 38.33; Bilirubin,Total 2.2 mg/dL (0.1-1.2); Calcium 8.4 mg/dL (8.4-10.2); Chloride 91.4 mmol/L (98-107); Potassium 3.2 mmol/L (3.6-5.0); Total Protein 6.9 g/dL (6.3-8.2)
[2016-10-25] MEDS ORDERED: K-DUR PO ONE ×2 (00:56→09:00)
[2016-10-25] MEDS: PERCOCET 5/325 PO PRN ×2 (06:27→14:01)
[2016-10-25] MEDS: BUMEX PO SCH ×2 (06:28→16:10)
--- NOTE | 2016-10-25 08:09 | Event Note ---
Date: 10/25/16 VSS AF, no complaints of abd pain this am, echo findings noted, LFTs demonstrate T bili 2.2, AST ALT normal, abd exam relatively benign, Negative Thakkar's sign, previous recc documented yesterday, I suspect patient has Cirrohsis of the liver secondary to Hep C, anticoagulated, I believe all the changes noted on the ultrasound can be explained by chronic liver dz, I have nothing else to add, if surgery is planned I recc transfer to [place], otherwise I am OK with advancing diet as tolerated and discharging home once CHF optimized , patient can follow up for her GB at [place].
[2016-10-25 08:16] LABS: INR 1.95 (0.87-1.13)
[2016-10-25] MEDS: NOVOLOG SUB-Q SCH ×4 (08:50→22:45)
[2016-10-25] MEDS: LEVAQUIN PO SCH (09:16)
[2016-10-25] MEDS: COREG PO SCH ×2 (09:26→23:08)
[2016-10-25] MEDS: ZAROXOLYN PO SCH (09:26)
[2016-10-25] MEDS: TYLENOL PO PRN ×2 (09:27→16:11)
--- NOTE | 2016-10-25 10:43 | Progress Note ---
Assessment and Plan Acute on chronic Diastolic heart failure with secondary pulmonary hypertension COPD Hypertension Hx of Hepatitis C induced liver cirrhosis Morbidly obese Acute kidney disease creatinine now improved, 1.2 today Mitral stenosis -moderate Chronic persistent atrial fibrillation rate controlled on coumadin therapy as an outpatient Recommendations: Continue aggressive diuresis with high-dose Bumex and metolazone. Fluid restriction. Strict intake an output. Daily weight. Subjective Date of service: 10/25/16 Principal diagnosis: acute kidney injury Interval history: No interval changes. Objective Vital Signs Temp Pulse Resp BP Pulse Ox 10/25/16 09:58 100 10/25/16 09:26 88 137/77 10/25/16 08:57 98.8 F 88 18 137/77 98 10/25/16 04:25 97.9 F 84 22 116/65 100 10/25/16 01:07 98.8 F 112 H 24 136/80 97 10/24/16 22:00 125 H 18 10/24/16 21:10 80 18 120/69 94 10/24/16 20:55 98.8 F 80 20 120/69 93 10/24/16 20:54 99.0 F 108 H 22 133/83 96 10/24/16 17:46 98.2 F 92 H 18 177/89 98 - Physical Examination General: No Apparent Distress HEENT: Positive: PERRL Cardiac: Positive: Reg Rate and Rhythm - Labs and Meds Cardiac Enzymes 10/24/16 Range/Units 21:42 AST 22 (5-40) units/L Coagulation 10/25/16 Range/Units 06:32 PT 23.3 H (12.2-14.9) Sec. INR 1.95 H (0.87-1.13) Comprehensive Metabolic Panel 10/24/16 Range/Units 21:42 Sodium 141 (137-145) mmol/L Potassium 3.2 L (3.6-5.0) mmol/L Chloride 91.4 L (98-107) mmol/L Carbon Dioxide 38 H (22-30) mmol/L BUN 46 H (7-17) mg/dL Creatinine 1.2 (0.7-1.2) mg/dL Glucose 154 H (65-100) mg/dL Calcium 8.4 (8.4-10.2) mg/dL AST 22 (5-40) units/L ALT 14 (7-56) units/L Alkaline Phosphatase 86 (35-129) units/L Total Protein 6.9 (6.3-8.2) g/dL Albumin 2.3 L (3.9-5) g/dL - Imaging and Cardiology EKG: image reviewed
--- NOTE | 2016-10-25 11:24 | Progress Note ---
Assessment and Plan (1) Acute kidney failure Current Visit: Yes Status: Acute Plan to address problem: CR improving(peak 2.7) now at 1.2. Continue diuretics. Bumex changed to IV 2 mg BID/ continue metolazone same dose. Follow-up electrolytes and renal function (2) Acute exacerbation of chronic bronchitis Current Visit: Yes Status: Acute Plan to address problem: Management per primary team (3) Chronic kidney disease, stage III (moderate) Current Visit: Yes Status: Acute Plan to address problem: Avoid potential nephrotoxins. (4) Acute on chronic diastolic heart failure Current Visit: Yes Status: Acute Plan to address problem: Continue gentle diuresis. Bumex changed to IV (5) Hypertensive chronic kidney disease with stage 1 through stage 4 chronic kidney disease, or unspecified chronic kidney disease Current Visit: Yes Status: Acute Plan to address problem: Follow-up blood pressure on current medications (6) Hypokalemia Current Visit: Yes Status: Acute Qualifiers: Hepatic cirrhosis type: H Ascites presence: A Plan to address problem: Replete potassium, check magnesium (7) Hypernatremia Current Visit: Yes Status: Acute Plan to address problem: Will monitor sodium level closely Long-term weight loss Subjective Date of service: 10/25/16 Principal diagnosis: acute kidney injury Interval history: c/o LE edema , and nausea Objective - Exam Narrative Exam: Elderly -A[place]ijani female lying in bed in no acute distress HEENT normocephalic atraumatic, pupils equal reactive to light, pink, clear oropharynx Neck supple, no thyromegaly no jugular venous distention CVS S1-S2 regular rate rhythm without murmur, rub or gallop Chest diminished breath sounds, few rales b/L Abdomen obese, soft, right upper quadrant tenderness, no organomegaly no bruit bowel sounds present Extremities 2+ edema no cyanosis or clubbing Genitourinary deferred Neuro awake, alert oriented x3 no gross deficit - Vital Signs Vital signs: Vital Signs - 12hr 10/25/16 10/25/16 10/25/16 01:07 04:25 08:57 Temperature 98.8 F 97.9 F 98.8 F Pulse Rate 112 H 84 88 Respiratory 24 22 18 Rate Blood Pressure 136/80 116/65 137/77 O2 Sat by Pulse 97 100 98 Oximetry 10/25/16 10/25/16 09:26 09:58 Temperature Pulse Rate 88 Respiratory Rate Blood Pressure 137/77 O2 Sat by Pulse 100 Oximetry - Lab 10/21/16 05:46 10/24/16 21:42 Most recent lab results Calcium 8.4 mg/dL (8.4-10.2) 10/24/16 21:42 Phosphorus 3.50 mg/dL (2.5-4.5) 10/23/16 08:38 Magnesium 1.70 mg/dL (1.7-2.3) 10/24/16 04:00 Urine Creatinine 17.3 mg/dL (0.1-20.0) 10/22/16 06:35 Urine Sodium 119 mEq/L 10/22/16 06:35 Urine Total Protein 4 mg/dL (5-11.8) L 10/22/16 06:35
--- NOTE | 2016-10-25 12:41 | Progress Note ---
Assessment and Plan Assessment and plan: --Acalculous cholecystitis on abdominal ultrasound Surgical evaluation noted and appreciated, unlikely acute problem since patient is afebrile, normal white count Advised to advance the diet, patient has her GI and surgical team in imaging, advised follow-up with them upon discharge We'll monitor if patient will tolerate diet, and if the symptoms do not improve may consider HIDA scan -- A. fib; rate controlled continue current beta blockers cardiology following --Acute on chronic diastolic congestive heart failure Cardiology evaluation noted and appreciated, rice to continue current management , no further cardiac workup --Acute on chronic kidney disease stage III Significant improvement of renal function Continue Gentle hydration, avoid nephrotoxic medications ,nephrology following --History of COPD Oxygen nebulizer treatments and IV steroids and IV antibiotics if needed --Chronic anticoagulation with Coumadin, INR therapeutic between 2 and 3 --Moderate mitral stenosis --History of hepatitis C --Morbid obesity; counseling and patient strongly advised diet modification and exercise as tolerated and weight reduction Patient would benefit by outpatient bariatric surgical evaluation for weight reduction program when medically stable --DVT prophylaxis with Lovenox --DC planning per case management, possible placement versus home with home health at discharge --Full CODE STATUS surgical evaluation and recommendations noted and appreciated Plan of care discussed with the patient as well as her nurse and case management History Interval history: Patient seen and evaluated in her room, medical records reviewed No new events reported by the nursing staff She is alert awake oriented 3 not in acute distress Right upper quadrant pain significantly improved Hospitalist Physical - Constitutional Vitals: Temp Pulse Resp BP Pulse Ox 98.8 F 90 18 137/77 100 10/25/16 08:57 10/25/16 10:00 10/25/16 08:57 10/25/16 09:26 10/25/16 09:58 General appearance: Present: no acute distress, well-nourished, obese (morbidly obese) - EENT Eyes: Present: PERRL, EOM intact - Neck Neck: Present: supple, normal ROM - Respiratory Respiratory effort: normal Respiratory: bilateral: diminished, negative: rales, rhonchi, wheezing - Cardiovascular Rhythm: regular Heart Sounds: Present: S1 & S2 - Extremities Extremities: no ischemia Extremity abnormal: edema - Abdominal General gastrointestinal: soft, non-tender, non-distended, normal bowel sounds - Integumentary Integumentary: Present: clear, warm - Psychiatric Psychiatric: appropriate mood/affect, cooperative - Neurologic Neurologic: CNII-XII intact, moves all extremities Results - Labs CBC & Chem 7: 10/21/16 05:46 10/24/16 21:42 Labs: Laboratory Last Values WBC 4.5 K/mm3 (4.5-11.0) 10/21/16 05:46 RBC 3.83 M/mm3 (3.65-5.03) 10/21/16 05:46 Hgb 10.5 gm/dl (10.1-14.3) 10/21/16 05:46 Hct 34.0 % (30.3-42.9) 10/21/16 05:46 MCV 89 fl (79-97) 10/21/16 05:46 MCH 27 pg (28-32) L 10/21/16 05:46 MCHC 31 % (30-34) 10/21/16 05:46 RDW 17.9 % (13.2-15.2) H 10/21/16 05:46 Plt Count 139 K/mm3 (140-440) L 10/21/16 05:46 Lymph % (Auto) 15.4 % (13.4-35.0) 10/21/16 05:46 [place] % (Auto) 12.1 % (0.0-7.3) H 10/21/16 05:46 Eos % (Auto) 1.7 % (0.0-4.3) 10/21/16 05:46 Baso % (Auto) 0.6 % (0.0-1.8) 10/21/16 05:46 Lymph # 0.7 K/mm3 (1.2-5.4) L 10/21/16 05:46 [place] # 0.5 K/mm3 (0.0-0.8) 10/21/16 05:46 Eos # 0.1 K/mm3 (0.0-0.4) 10/21/16 05:46 Baso # 0.0 K/mm3 (0.0-0.1) 10/21/16 05:46 Seg Neutrophils % 70.2 % (40.0-70.0) H 10/21/16 05:46 Seg Neutrophils # 3.2 K/mm3 (1.8-7.7) 10/21/16 05:46 PT 23.3 Sec. (12.2-14.9) H 10/25/16 06:32 INR 1.95 (0.87-1.13) H 10/25/16 06:32 APTT 39.9 Sec. (24.2-36.6) H 10/21/16 05:46 Sodium 141 mmol/L (137-145) 10/24/16 21:42 Potassium 3.2 mmol/L (3.6-5.0) L 10/24/16 21:42 Chloride 91.4 mmol/L (98-107) L 10/24/16 21:42 Carbon Dioxide 38 mmol/L (22-30) H 10/24/16 21:42 Anion Gap 15 mmol/L 10/24/16 21:42 BUN 46 mg/dL (7-17) H 10/24/16 21:42 Creatinine 1.2 mg/dL (0.7-1.2) 10/24/16 21:42 Estimated GFR 54 ml/min 10/24/16 21:42 BUN/Creatinine Ratio 38.33 % 10/24/16 21:42 Glucose 154 mg/dL (65-100) H 10/24/16 21:42 POC Glucose 108 (70-105) H 10/25/16 08:14 Calcium 8.4 mg/dL (8.4-10.2) 10/24/16 21:42 Phosphorus 3.50 mg/dL (2.5-4.5) 10/23/16 08:38 Magnesium 1.70 mg/dL (1.7-2.3) 10/24/16 04:00 Total Bilirubin 2.20 mg/dL (0.1-1.2) H 10/24/16 21:42 AST 22 units/L (5-40) 10/24/16 21:42 ALT 14 units/L (7-56) 10/24/16 21:42 Alkaline Phosphatase 86 units/L (35-129) 10/24/16 21:42 Ammonia 37.0 umol/L (25-60) 10/21/16 11:48 Total Creatine Kinase 132 units/L (30-135) 10/20/16 18:00 Troponin T 0.024 ng/mL (0.00-0.029) 10/20/16 18:00 NT-Pro-B Natriuret Pep 6946 pg/mL (0-900) H 10/20/16 18:00 Total Protein 6.9 g/dL (6.3-8.2) 10/24/16 21:42 Albumin 2.3 g/dL (3.9-5) L 10/24/16 21:42 Albumin/Globulin Ratio 0.5 % 10/24/16 21:42 Urine Color Straw (Yellow) 10/22/16 06:35 Urine Turbidity Clear (Clear) 10/22/16 06:35 Urine pH 6.0 (5.0-7.0) 10/22/16 06:35 Ur Specific [place] 1.006 (1.003-1.030) 10/22/16 06:35 Urine Protein <15 mg/dl mg/dL (Negative) 10/22/16 06:35 Urine Glucose (UA) Neg mg/dL (Negative) 10/22/16 06:35 Urine Ketones Neg mg/dL (Negative) 10/22/16 06:35 Urine Blood Sm (Negative) 10/22/16 06:35 Urine Nitrite Neg (Negative) 10/22/16 06:35 Urine Bilirubin Neg (Negative) 10/22/16 06:35 Urine Urobilinogen < 2.0 mg/dL (<2.0) 10/22/16 06:35 Ur Leukocyte Esterase Lg (Negative) 10/22/16 06:35 Urine WBC (Auto) 20.0 /HPF (0.0-6.0) H 10/22/16 06:35 Urine RBC (Auto) 2.0 /HPF (0.0-6.0) 10/22/16 06:35 U Epithel Cells (Auto) 1.0 /HPF (0-13.0) 10/22/16 06:35 Urine Bacteria (Auto) 1+ /HPF (Negative) 10/22/16 06:35 Urine Mucus Few /HPF 10/22/16 06:35 Urine Osmolality 333 Mosm/kg 10/22/16 06:35 Urine Creatinine 17.3 mg/dL (0.1-20.0) 10/22/16 06:35 Urine Sodium 119 mEq/L 10/22/16 06:35 Urine Total Protein 4 mg/dL (5-11.8) L 10/22/16 06:35
[2016-10-25] MEDS: ZOFRAN IV PRN ×2 (14:01→20:05)
[2016-10-25] MEDS: COUMADIN PO SCH (16:11)
[2016-10-25] MEDS: BUMEX IV SCH (23:08)
[2016-10-26] MEDS: ZOFRAN IV PRN ×5 (00:32→20:40)
[2016-10-26] MEDS: BUMEX IV SCH (05:01)
[2016-10-26] MEDS: PERCOCET 5/325 PO PRN ×2 (05:02→10:18)
[2016-10-26 05:49] LABS: Basophils % (Auto) 0.5 % (0.0-1.8); Eosinophils % (Auto) 2.2 % (0.0-4.3); Hematocrit 31.9 % (30.3-42.9); Hemoglobin 10.3 gm/dl (10.1-14.3); Mean Corpuscular HGB Conc 32 % (30-34); Mean Corpuscular Hemoglobin 28 pg (28-32); Mean Corpuscular Volume 86 fl (79-97); Platelet Count 117 K/mm3 (140-440); Red Cell Distribution Width 16.6 % (13.2-15.2); White Blood Count 3.3 K/mm3 (4.5-11.0)
[2016-10-26 05:57] LABS: INR 1.84 (0.87-1.13)
[2016-10-26 06:16] LABS: Albumin/Globulin Ratio 0.5 %; BUN/Creatinine Ratio 35.71; Bilirubin,Total 1.5 mg/dL (0.1-1.2); Calcium 7.9 mg/dL (8.4-10.2); Potassium 3.4 mmol/L (3.6-5.0); Total Protein 6.4 g/dL (6.3-8.2)
[2016-10-26] MEDS ORDERED: K-DUR PO NR (08:00)
[2016-10-26] MEDS: NOVOLOG SUB-Q SCH ×4 (08:44→22:08)
--- NOTE | 2016-10-26 10:08 | Vascular Lab Report ---
LOWER EXTREMITY VENOUS DUPLEX: REASON FOR EXAM: Edema of the lower extremities. COMMENTS ON THE RIGHT: All veins visualized are freely compressible without evidence of internal echogenicity. Flow is spontaneous and phasic throughout. COMMENTS ON THE LEFT: All veins visualized are freely compressible without evidence of internal echogenicity. Flow is spontaneous and phasic throughout. IMPRESSION: No evidence of acute or chronic deep venous thrombosis in either lower extremity.
[2016-10-26] MEDS: ZAROXOLYN PO SCH (10:19)
[2016-10-26] MEDS: K-DUR PO SCH (10:19)
[2016-10-26] MEDS: COREG PO SCH ×2 (10:19→21:26)
[2016-10-26] MEDS: LEVAQUIN PO SCH (10:19)
--- NOTE | 2016-10-26 11:17 | Progress Note ---
Assessment and Plan Acute on chronic Diastolic heart failure with secondary pulmonary hypertension Cholecystitis, non-calculus on abd u/s COPD Hypertension Hx of Hepatitis C induced liver cirrhosis Morbidly obese Acute kidney disease creatinine now improved, 1.2 today Mitral stenosis -moderate Chronic persistent atrial fibrillation rate controlled on coumadin therapy as an outpatient Recommendations: Continue diuresis with high-dose Bumex and metolazone. Fluid restriction. Strict intake an output. Daily weight. Conservative cardiac management. Subjective Date of service: 10/26/16 Principal diagnosis: acute kidney injury Interval history: Patient complains of abdominal pain with nausea. Patient reports her breathing is better. Objective Vital Signs Temp Pulse Resp BP Pulse Ox 10/26/16 10:00 24 97 10/26/16 08:30 98.5 F 118 H 24 147/73 97 10/26/16 04:50 98.6 F 81 20 154/88 100 10/26/16 00:53 98.7 F 83 22 123/73 100 10/25/16 22:00 114 H 98 10/25/16 21:32 98.2 F 100 H 20 125/70 99 10/25/16 18:28 98.1 F 87 18 164/85 96 10/25/16 13:02 98.1 F 97 H 20 112/90 99 - Physical Examination General: No Apparent Distress, Other (obese) HEENT: Positive: PERRL Cardiac: Positive: irregularly irregular Lungs: Positive: Decreased Breath Sounds Neuro: Positive: Grossly Intact Extremities: Present: +1 Edema - Labs and Meds Cardiac Enzymes 10/26/16 Range/Units 05:08 AST 33 (5-40) units/L Coagulation 10/26/16 Range/Units 05:21 PT 22.2 H (12.2-14.9) Sec. INR 1.84 H (0.87-1.13) CBC 10/26/16 Range/Units 05:08 WBC 3.3 L (4.5-11.0) K/mm3 RBC 3.70 (3.65-5.03) M/mm3 Hgb 10.3 (10.1-14.3) gm/dl Hct 31.9 (30.3-42.9) % Plt Count 117 L (140-440) K/mm3 Lymph # 0.5 L (1.2-5.4) K/mm3 [place] # 0.5 (0.0-0.8) K/mm3 Eos # 0.1 (0.0-0.4) K/mm3 Baso # 0.0 (0.0-0.1) K/mm3 Comprehensive Metabolic Panel 10/26/16 Range/Units 05:08 Sodium 144 (137-145) mmol/L Potassium 3.4 L (3.6-5.0) mmol/L Chloride 92.0 L (98-107) mmol/L Carbon Dioxide 44 H* (22-30) mmol/L BUN 50 H (7-17) mg/dL Creatinine 1.4 H (0.7-1.2) mg/dL Glucose 104 H (65-100) mg/dL Calcium 7.9 L (8.4-10.2) mg/dL AST 33 (5-40) units/L ALT 14 (7-56) units/L Alkaline Phosphatase 80 (35-129) units/L Total Protein 6.4 (6.3-8.2) g/dL Albumin 2.0 L (3.9-5) g/dL - Imaging and Cardiology EKG: image reviewed
--- NOTE | 2016-10-26 11:23 | Event Note ---
Date: 10/26/16 appears comfortable, VSS Afebrile, abd soft, seems to be tolerating diet, LFTs improved, I really have nothing else to offer this patient. She states she was recently at [facility] and was in the hospital for ONE month!
[2016-10-26] MEDS ORDERED: DIAMOX IV SCH ×2 (12:00→13:00)
[2016-10-26] MEDS ORDERED: NACL 0.9% IV SCH (13:00)
--- NOTE | 2016-10-26 15:04 | Progress Note ---
Assessment and Plan (1) Acute kidney failure Current Visit: Yes Status: Acute Plan to address problem: CR now at 1.4 (peak 2.7).CR marginally increased from 10/25/16. Likely 2/2 diuretics. Will reduce dose of Bumex (also 2/2 significant increase in her serum bicarb) (2) Acute exacerbation of chronic bronchitis Current Visit: Yes Status: Acute Plan to address problem: Management per primary team (3) Chronic kidney disease, stage III (moderate) Current Visit: Yes Status: Acute Plan to address problem: Avoid potential nephrotoxins. (4) Acute on chronic diastolic heart failure Current Visit: Yes Status: Acute Plan to address problem: Continue gentle diuresis. Bumex changed to IV (5) Hypertensive chronic kidney disease with stage 1 through stage 4 chronic kidney disease, or unspecified chronic kidney disease Current Visit: Yes Status: Acute Plan to address problem: Follow-up blood pressure on current medications (6) Hypokalemia Current Visit: Yes Status: Acute Qualifiers: Hepatic cirrhosis type: H Ascites presence: A Plan to address problem: Replete potassium, check magnesium (7) Metabolic alkalosis Current Visit: Yes Status: Acute Plan to address problem: likely related to her diuretics/ also compensation to chronic resp acidosis Her Bumex dose is reduced Will give a dose of diamox(with close monitoring 2/2 her liver dysfunction) If her bicarb improves to <40 in am she can be d/sidra home with follow up in our office Discussed with Dr Santillan Subjective Date of service: 10/26/16 Principal diagnosis: acute kidney injury Interval history: Nausea improved. c/o generalized body aches Objective - Exam Narrative Exam: Elderly -Vietnamese female lying in bed in no acute distress HEENT normocephalic atraumatic, pupils equal reactive to light, pink, clear oropharynx Neck supple, no thyromegaly no jugular venous distention CVS S1-S2 regular rate rhythm without murmur, rub or gallop Chest diminished breath sounds, few rales b/L Abdomen obese, soft, right upper quadrant tenderness, no organomegaly no bruit bowel sounds present Extremities 2+ edema no cyanosis or clubbing--edema improving Genitourinary deferred Neuro awake, alert oriented x3 no gross deficit - Vital Signs Vital signs: Vital Signs - 12hr 10/26/16 10/26/16 10/26/16 04:50 08:30 10:00 Temperature 98.6 F 98.5 F Pulse Rate 81 118 H 89 Respiratory 20 24 24 Rate Blood Pressure 154/88 147/73 O2 Sat by Pulse 100 97 99 Oximetry 10/26/16 13:15 Temperature 98.1 F Pulse Rate 90 Respiratory 24 Rate Blood Pressure 133/90 O2 Sat by Pulse 100 Oximetry - Lab 10/26/16 05:08 10/26/16 05:08 Most recent lab results Calcium 7.9 mg/dL (8.4-10.2) L 10/26/16 05:08 Phosphorus 3.50 mg/dL (2.5-4.5) 10/23/16 08:38 Magnesium 1.70 mg/dL (1.7-2.3) 10/24/16 04:00 Urine Creatinine 17.3 mg/dL (0.1-20.0) 10/22/16 06:35 Urine Sodium 119 mEq/L 10/22/16 06:35 Urine Total Protein 4 mg/dL (5-11.8) L 10/22/16 06:35
--- NOTE | 2016-10-26 16:40 | Progress Note ---
Assessment and Plan Assessment and plan: --Metabolic alkalosis Probably due to her diuretics use , dose adjusted Nephrology recommend diamox(with close monitoring 2/2 her liver dysfunction) If her bicarb improves to <40 in am she can be d/sidra home per nephrology --Acalculous cholecystitis on abdominal ultrasound No indication for any intervention at this point per surgery Advised to advance the diet, patient to follow with his primary GI and surgical team at [facility] upon discharge Patient diffuse HIDA scan -- A. fib; rate controlled continue current beta blockers cardiology following --Acute on chronic diastolic congestive heart failure Cardiology evaluation noted and appreciated, rice to continue current management , no further cardiac workup --Acute on chronic kidney disease stage III Significant improvement of renal function Continue Gentle hydration, avoid nephrotoxic medications ,nephrology following --History of COPD Oxygen nebulizer treatments and IV steroids and IV antibiotics if needed --Chronic anticoagulation with Coumadin, INR therapeutic between 2 and 3 --Moderate mitral stenosis --History of hepatitis C --Morbid obesity; counseling and patient strongly advised diet modification and exercise as tolerated and weight reduction Patient would benefit by outpatient bariatric surgical evaluation for weight reduction program when medically stable --DVT prophylaxis with Lovenox --DC planning per case management, possible placement versus home with home health at discharge --Full CODE STATUS surgical evaluation and recommendations noted and appreciated Plan of care discussed with the patient as well as her nurse and case management I also called her sister and discussed the patient's condition treatment and discharge plan History Interval history: Patient feels better, no new complaints Alert and awake not in acute distress Complaints of mild shortness of breath, elevated bicarbonate and metabolic acidosis Hospitalist Physical - Constitutional Vitals: Temp Pulse Resp BP Pulse Ox 98.1 F 90 24 133/90 100 10/26/16 13:15 10/26/16 13:15 10/26/16 13:15 10/26/16 13:15 10/26/16 13:15 General appearance: Present: no acute distress, well-nourished, obese (morbidly obese) - EENT Eyes: Present: PERRL, EOM intact - Neck Neck: Present: supple, normal ROM - Respiratory Respiratory effort: normal Respiratory: bilateral: diminished, negative: rales, rhonchi, wheezing - Cardiovascular Rhythm: regular Heart Sounds: Present: S1 & S2 - Extremities Extremities: no ischemia Extremity abnormal: edema - Abdominal General gastrointestinal: soft, non-tender, non-distended, normal bowel sounds - Integumentary Integumentary: Present: clear, warm - Psychiatric Psychiatric: appropriate mood/affect, cooperative - Neurologic Neurologic: CNII-XII intact, moves all extremities Results - Labs CBC & Chem 7: 10/26/16 05:08 10/26/16 05:08 Labs: Laboratory Last Values WBC 3.3 K/mm3 (4.5-11.0) L 10/26/16 05:08 RBC 3.70 M/mm3 (3.65-5.03) 10/26/16 05:08 Hgb 10.3 gm/dl (10.1-14.3) 10/26/16 05:08 Hct 31.9 % (30.3-42.9) 10/26/16 05:08 MCV 86 fl (79-97) 10/26/16 05:08 MCH 28 pg (28-32) 10/26/16 05:08 MCHC 32 % (30-34) 10/26/16 05:08 RDW 16.6 % (13.2-15.2) H 10/26/16 05:08 Plt Count 117 K/mm3 (140-440) L 10/26/16 05:08 Lymph % (Auto) 14.8 % (13.4-35.0) 10/26/16 05:08 [place] % (Auto) 13.9 % (0.0-7.3) H 10/26/16 05:08 Eos % (Auto) 2.2 % (0.0-4.3) 10/26/16 05:08 Baso % (Auto) 0.5 % (0.0-1.8) 10/26/16 05:08 Lymph # 0.5 K/mm3 (1.2-5.4) L 10/26/16 05:08 [place] # 0.5 K/mm3 (0.0-0.8) 10/26/16 05:08 Eos # 0.1 K/mm3 (0.0-0.4) 10/26/16 05:08 Baso # 0.0 K/mm3 (0.0-0.1) 10/26/16 05:08 Seg Neutrophils % 68.6 % (40.0-70.0) 10/26/16 05:08 Seg Neutrophils # 2.3 K/mm3 (1.8-7.7) 10/26/16 05:08 PT 22.2 Sec. (12.2-14.9) H 10/26/16 05:21 INR 1.84 (0.87-1.13) H 10/26/16 05:21 APTT 39.9 Sec. (24.2-36.6) H 10/21/16 05:46 Sodium 144 mmol/L (137-145) 10/26/16 05:08 Potassium 3.4 mmol/L (3.6-5.0) L 10/26/16 05:08 Chloride 92.0 mmol/L (98-107) L 10/26/16 05:08 Carbon Dioxide 44 mmol/L (22-30) H* 10/26/16 05:08 Anion Gap 11 mmol/L 10/26/16 05:08 BUN 50 mg/dL (7-17) H 10/26/16 05:08 Creatinine 1.4 mg/dL (0.7-1.2) H 10/26/16 05:08 Estimated GFR 45 ml/min 10/26/16 05:08 BUN/Creatinine Ratio 35.71 % 10/26/16 05:08 Glucose 104 mg/dL (65-100) H 10/26/16 05:08 POC Glucose 115 (70-105) H 10/26/16 08:40 Calcium 7.9 mg/dL (8.4-10.2) L 10/26/16 05:08 Phosphorus 3.50 mg/dL (2.5-4.5) 10/23/16 08:38 Magnesium 1.70 mg/dL (1.7-2.3) 10/24/16 04:00 Total Bilirubin 1.50 mg/dL (0.1-1.2) H 10/26/16 05:08 AST 33 units/L (5-40) 10/26/16 05:08 ALT 14 units/L (7-56) 10/26/16 05:08 Alkaline Phosphatase 80 units/L (35-129) 10/26/16 05:08 Ammonia 37.0 umol/L (25-60) 10/21/16 11:48 Total Creatine Kinase 132 units/L (30-135) 10/20/16 18:00 Troponin T 0.024 ng/mL (0.00-0.029) 10/20/16 18:00 NT-Pro-B Natriuret Pep 6946 pg/mL (0-900) H 10/20/16 18:00 Total Protein 6.4 g/dL (6.3-8.2) 10/26/16 05:08 Albumin 2.0 g/dL (3.9-5) L 10/26/16 05:08 Albumin/Globulin Ratio 0.5 % 10/26/16 05:08 Urine Color Straw (Yellow) 10/22/16 06:35 Urine Turbidity Clear (Clear) 10/22/16 06:35 Urine pH 6.0 (5.0-7.0) 10/22/16 06:35 Ur Specific [place] 1.006 (1.003-1.030) 10/22/16 06:35 Urine Protein <15 mg/dl mg/dL (Negative) 10/22/16 06:35 Urine Glucose (UA) Neg mg/dL (Negative) 10/22/16 06:35 Urine Ketones Neg mg/dL (Negative) 10/22/16 06:35 Urine Blood Sm (Negative) 10/22/16 06:35 Urine Nitrite Neg (Negative) 10/22/16 06:35 Urine Bilirubin Neg (Negative) 10/22/16 06:35 Urine Urobilinogen < 2.0 mg/dL (<2.0) 10/22/16 06:35 Ur Leukocyte Esterase Lg (Negative) 10/22/16 06:35 Urine WBC (Auto) 20.0 /HPF (0.0-6.0) H 10/22/16 06:35 Urine RBC (Auto) 2.0 /HPF (0.0-6.0) 10/22/16 06:35 U Epithel Cells (Auto) 1.0 /HPF (0-13.0) 10/22/16 06:35 Urine Bacteria (Auto) 1+ /HPF (Negative) 10/22/16 06:35 Urine Mucus Few /HPF 10/22/16 06:35 Urine Osmolality 333 Mosm/kg 10/22/16 06:35 Urine Creatinine 17.3 mg/dL (0.1-20.0) 10/22/16 06:35 Urine Sodium 119 mEq/L 10/22/16 06:35 Urine Total Protein 4 mg/dL (5-11.8) L 10/22/16 06:35
[2016-10-26] MEDS: MORPHINE IV PRN ×2 (16:46→22:59)
[2016-10-26] MEDS: COUMADIN PO SCH (16:46)
[2016-10-26] MEDS: TYLENOL PO PRN (20:40)
[2016-10-27] MEDS: MORPHINE IV PRN ×3 (05:48→19:57)
[2016-10-27 06:19] LABS: Hematocrit 33.9 % (30.3-42.9); Hemoglobin 10.5 gm/dl (10.1-14.3); Mean Corpuscular HGB Conc 31 % (30-34); Mean Corpuscular Hemoglobin 27 pg (28-32); Mean Corpuscular Volume 87 fl (79-97); Platelet Count 127 K/mm3 (140-440); Red Blood Count 3.89 M/mm3 (3.65-5.03); Red Cell Distribution Width 16.3 % (13.2-15.2); White Blood Count 2.7 K/mm3 (4.5-11.0)
[2016-10-27 06:34] LABS: INR 1.9 (0.87-1.13)
[2016-10-27 06:36] LABS: BUN/Creatinine Ratio 31.42; Calcium 8.2 mg/dL (8.4-10.2); Magnesium 1.7 mg/dL (1.7-2.3); Potassium 3.3 mmol/L (3.6-5.0)
[2016-10-27] MEDS: NOVOLOG SUB-Q SCH ×4 (08:00→23:52)
[2016-10-27 09:33] LABS: Blastocytes % (Manual) 0 %
[2016-10-27 09:35] LABS: Anisocytosis 1+; Hypochromasia 1+; Stomatocytes Few; Target Cells 1+
[2016-10-27 09:36] LABS: Diff Status Complete; Platelet Estimate Consistent w Auto; Polychromasia Few
[2016-10-27] MEDS: K-DUR PO SCH (09:58)
[2016-10-27] MEDS: LEVAQUIN PO SCH (09:59)
[2016-10-27] MEDS: BUMEX PO SCH (09:59)
[2016-10-27] MEDS: ZAROXOLYN PO SCH (09:59)
[2016-10-27] MEDS: COREG PO SCH ×2 (09:59→22:08)
[2016-10-27] MEDS: TYLENOL PO PRN ×2 (10:01→18:33)
[2016-10-27] MEDS ORDERED: K-DUR PO ONE (10:24)
--- NOTE | 2016-10-27 10:59 | Progress Note ---
Assessment and Plan Acute on chronic Diastolic heart failure with secondary pulmonary hypertension Cholecystitis, non-calculus on abd u/s COPD Hypertension Hx of Hepatitis C induced liver cirrhosis Morbidly obese Chronic renal failure Mitral stenosis -moderate Chronic persistent atrial fibrillation rate controlled on coumadin therapy as an outpatient Recommendations: Continue diuresis with high-dose Bumex and metolazone. Monitor renal function closely. Fluid restriction. Strict intake an output. Daily weight. Conservative cardiac management. Subjective Date of service: 10/27/16 Principal diagnosis: acute kidney injury Interval history: Patient denies chest pain and shortness of breath. Objective Vital Signs Temp Pulse Resp BP Pulse Ox 10/27/16 10:01 22 10/27/16 09:46 97 10/27/16 07:15 98.7 F 82 20 142/88 10/27/16 05:50 98.4 F 82 18 142/70 99 10/27/16 04:45 90 10/27/16 01:10 99.0 F 76 18 144/68 97 10/26/16 22:00 90 10/26/16 21:26 100 H 10/26/16 20:45 98 10/26/16 20:09 98.4 F 108 H 18 159/82 98 10/26/16 16:15 97.8 F 82 20 148/88 100 10/26/16 13:15 98.1 F 90 24 133/90 100 - Physical Examination General: No Apparent Distress, Other (obese) HEENT: Positive: PERRL Cardiac: Positive: irregularly irregular Lungs: Positive: Decreased Breath Sounds Neuro: Positive: Grossly Intact Extremities: Present: +1 Edema - Labs and Meds Coagulation 10/27/16 Range/Units 05:15 PT 22.8 H (12.2-14.9) Sec. INR 1.90 H (0.87-1.13) CBC 10/27/16 Range/Units 05:15 WBC 2.7 L (4.5-11.0) K/mm3 RBC 3.89 (3.65-5.03) M/mm3 Hgb 10.5 (10.1-14.3) gm/dl Hct 33.9 (30.3-42.9) % Plt Count 127 L (140-440) K/mm3 Comprehensive Metabolic Panel 10/27/16 Range/Units 05:15 Sodium 141 (137-145) mmol/L Potassium 3.3 L (3.6-5.0) mmol/L Chloride 91.0 L (98-107) mmol/L Carbon Dioxide 40 H (22-30) mmol/L BUN 44 H (7-17) mg/dL Creatinine 1.4 H (0.7-1.2) mg/dL Glucose 113 H (65-100) mg/dL Calcium 8.2 L (8.4-10.2) mg/dL - Imaging and Cardiology EKG: image reviewed
--- NOTE | 2016-10-27 13:06 | Event Note ---
Date: 10/27/16 Pt refused HIDA scan, I really have nothing else to offer this patient, I will sign off and she can follow up at [place].
--- NOTE | 2016-10-27 14:27 | Progress Note ---
Assessment and Plan (1) Acute kidney failure Current Visit: Yes Status: Acute Plan to address problem: CR now stable 1.4 (peak 2.7). Continue Bumex/metolazone PO Follow up in 1 week in clinic for further adjustment of her medications. Ok for d/c home from [facility] (2) Acute exacerbation of chronic bronchitis Current Visit: Yes Status: Acute Plan to address problem: Management per primary team (3) Chronic kidney disease, stage III (moderate) Current Visit: Yes Status: Acute Plan to address problem: Avoid potential nephrotoxins. (4) Acute on chronic diastolic heart failure Current Visit: Yes Status: Acute Plan to address problem: Improving, Continue gentle diuresis with PO diuretics (5) Hypertensive chronic kidney disease with stage 1 through stage 4 chronic kidney disease, or unspecified chronic kidney disease Current Visit: Yes Status: Acute Plan to address problem: Follow-up blood pressure on current medications (6) Hypokalemia Current Visit: Yes Status: Acute Qualifiers: Hepatic cirrhosis type: H Ascites presence: A Plan to address problem: Repleted potassium (7) Metabolic alkalosis Current Visit: Yes Status: Acute Plan to address problem: Improving(serum bicarb decreased from 44 to 40 today) Her Bumex dose is reduced Subjective Date of service: 10/27/16 Principal diagnosis: acute kidney injury Interval history: Multiple body aches Objective - Exam Narrative Exam: Elderly -[place]ogolese female lying in bed in no acute distress HEENT normocephalic atraumatic, pupils equal reactive to light, pink, clear oropharynx Neck supple, no thyromegaly no jugular venous distention CVS S1-S2 regular rate rhythm without murmur, rub or gallop Chest diminished breath sounds, few rales b/L Abdomen obese, soft, right upper quadrant tenderness, no organomegaly no bruit bowel sounds present Extremities 2+ edema no cyanosis or clubbing--edema improving Genitourinary deferred Neuro awake, alert oriented x3 no gross deficit - Vital Signs Vital signs: Vital Signs - 12hr 10/27/16 10/27/16 10/27/16 04:45 05:50 07:15 Temperature 98.4 F 98.7 F Pulse Rate 90 82 82 Respiratory 18 20 Rate Blood Pressure 142/70 142/88 O2 Sat by Pulse 99 Oximetry 10/27/16 10/27/16 10/27/16 09:46 10:01 11:00 Temperature 98.3 F Pulse Rate 79 Respiratory 22 20 Rate Blood Pressure 136/79 O2 Sat by Pulse 97 Oximetry 10/27/16 12:34 Temperature Pulse Rate Respiratory 22 Rate Blood Pressure O2 Sat by Pulse Oximetry - Lab 10/27/16 05:15 10/27/16 05:15 Most recent lab results Calcium 8.2 mg/dL (8.4-10.2) L 10/27/16 05:15 Phosphorus 3.50 mg/dL (2.5-4.5) 10/23/16 08:38 Magnesium 1.70 mg/dL (1.7-2.3) 10/27/16 05:15 Urine Creatinine 17.3 mg/dL (0.1-20.0) 10/22/16 06:35 Urine Sodium 119 mEq/L 10/22/16 06:35 Urine Total Protein 4 mg/dL (5-11.8) L 10/22/16 06:35
[2016-10-27] MEDS: ZOFRAN IV PRN ×2 (14:45→20:20)
[2016-10-27] MEDS: COUMADIN PO SCH (18:32)
--- NOTE | 2016-10-27 18:47 | Progress Note ---
Assessment and Plan Assessment and plan: --Metabolic alkalosis, significant improvement Management per nephrology --Acalculous cholecystitis on abdominal ultrasound No indication for any intervention at this point per surgery Tolerating diet , no symptoms , advised to follow primary GI and surgical team at [facility] upon discharge Patient refused HIDA scan -- A. fib; rate controlled continue current beta blockers cardiology following --Acute on chronic diastolic congestive heart failure Cardiology evaluation noted and appreciated, rice to continue current management , no further cardiac workup --Acute on chronic kidney disease stage III Significant improvement of renal function Continue Gentle hydration, avoid nephrotoxic medications ,nephrology following --History of COPD Oxygen nebulizer treatments and IV steroids and IV antibiotics if needed --Chronic anticoagulation with Coumadin, INR therapeutic between 2 and 3 --Moderate mitral stenosis --History of hepatitis C --Morbid obesity; counseling and patient strongly advised diet modification and exercise as tolerated and weight reduction Patient would benefit by outpatient bariatric surgical evaluation for weight reduction program when medically stable --DVT prophylaxis with Lovenox --DC planning per case management, possible placement versus home with home health at discharge --Full CODE STATUS Physical therapy occupational therapy Possible discharge home with home health tomorrow History Interval history: Patient seen and evaluated medical records reviewed Patient feels slightly better, complains of shortness of breath and tiredness Alert awake oriented 3 not in acute distress Hospitalist Physical - Constitutional Vitals: Temp Pulse Resp BP Pulse Ox 98.8 F 80 20 121/77 97 10/27/16 13:00 10/27/16 13:00 10/27/16 18:33 10/27/16 13:00 10/27/16 09:46 General appearance: Present: no acute distress, well-nourished, obese (morbidly obese) - EENT Eyes: Present: PERRL, EOM intact - Neck Neck: Present: supple, normal ROM - Respiratory Respiratory effort: normal Respiratory: bilateral: diminished, negative: rales, rhonchi, wheezing - Cardiovascular Rhythm: irregularly irregular Heart Sounds: Present: S1 & S2 - Extremities Extremities: no ischemia Extremity abnormal: edema - Abdominal General gastrointestinal: soft, non-tender, non-distended, normal bowel sounds - Integumentary Integumentary: Present: clear, warm - Psychiatric Psychiatric: appropriate mood/affect, cooperative - Neurologic Neurologic: moves all extremities Results - Labs CBC & Chem 7: 10/27/16 05:15 10/27/16 05:15 Labs: Laboratory Last Values WBC 2.7 K/mm3 (4.5-11.0) L 10/27/16 05:15 RBC 3.89 M/mm3 (3.65-5.03) 10/27/16 05:15 Hgb 10.5 gm/dl (10.1-14.3) 10/27/16 05:15 Hct 33.9 % (30.3-42.9) 10/27/16 05:15 MCV 87 fl (79-97) 10/27/16 05:15 MCH 27 pg (28-32) L 10/27/16 05:15 MCHC 31 % (30-34) 10/27/16 05:15 RDW 16.3 % (13.2-15.2) H 10/27/16 05:15 Plt Count 127 K/mm3 (140-440) L 10/27/16 05:15 Lymph % (Auto) 14.8 % (13.4-35.0) 10/26/16 05:08 [place] % (Auto) Actuarial Analyst 10/27/16 05:15 Eos % (Auto) 2.2 % (0.0-4.3) 10/26/16 05:08 Baso % (Auto) 0.5 % (0.0-1.8) 10/26/16 05:08 Lymph # 0.5 K/mm3 (1.2-5.4) L 10/26/16 05:08 [place] # 0.5 K/mm3 (0.0-0.8) 10/26/16 05:08 Eos # 0.1 K/mm3 (0.0-0.4) 10/26/16 05:08 Baso # 0.0 K/mm3 (0.0-0.1) 10/26/16 05:08 Add Manual Diff Complete 10/27/16 05:15 Total Counted 100 10/27/16 05:15 Seg Neutrophils % 68.6 % (40.0-70.0) 10/26/16 05:08 Seg Neuts % (Manual) 70.0 % (40.0-70.0) 10/27/16 05:15 Band Neutrophils % 0 % 10/27/16 05:15 Lymphocytes % (Manual) 16.0 % (13.4-35.0) 10/27/16 05:15 Reactive Lymphs % (Man) 0 % 10/27/16 05:15 Monocytes % (Manual) 11.0 % (0.0-7.3) H 10/27/16 05:15 Eosinophils % (Manual) 2.0 % (0.0-4.3) 10/27/16 05:15 Basophils % (Manual) 1.0 % (0.0-1.8) 10/27/16 05:15 Metamyelocytes % 0 % 10/27/16 05:15 Myelocytes % 0 % 10/27/16 05:15 Promyelocytes % 0 % 10/27/16 05:15 Blast Cells % 0 % 10/27/16 05:15 Nucleated RBC % 1.0 % (0.0-0.9) H 10/27/16 05:15 Seg Neutrophils # 2.3 K/mm3 (1.8-7.7) 10/26/16 05:08 Seg Neutrophils # Man 1.9 K/mm3 (1.8-7.7) 10/27/16 05:15 Band Neutrophils # 0.0 K/mm3 10/27/16 05:15 Lymphocytes # (Manual) 0.4 K/mm3 (1.2-5.4) L 10/27/16 05:15 Abs React Lymphs (Man) 0.0 K/mm3 10/27/16 05:15 Monocytes # (Manual) 0.3 K/mm3 (0.0-0.8) 10/27/16 05:15 Eosinophils # (Manual) 0.1 K/mm3 (0.0-0.4) 10/27/16 05:15 Basophils # (Manual) 0.0 K/mm3 (0.0-0.1) 10/27/16 05:15 Metamyelocytes # 0.0 K/mm3 10/27/16 05:15 Myelocytes # 0.0 K/mm3 10/27/16 05:15 Promyelocytes # 0.0 K/mm3 10/27/16 05:15 Blast Cells # 0.0 K/mm3 10/27/16 05:15 WBC Morphology Not Reportable 10/27/16 05:15 Hypersegmented Neuts Not Reportable 10/27/16 05:15 Hyposegmented Neuts Not Reportable 10/27/16 05:15 Hypogranular Neuts Not Reportable 10/27/16 05:15 Smudge Cells Not Reportable 10/27/16 05:15 Toxic Granulation Not Reportable 10/27/16 05:15 Toxic Vacuolation Not Reportable 10/27/16 05:15 Dohle Bodies Not Reportable 10/27/16 05:15 Pelger-Huet Anomaly Not Reportable 10/27/16 05:15 Sergo Rods Not Reportable 10/27/16 05:15 Platelet Estimate Consistent w auto 10/27/16 05:15 Clumped Platelets Not Reportable 10/27/16 05:15 Plt Clumps, EDTA Not Reportable 10/27/16 05:15 Large Platelets Not Reportable 10/27/16 05:15 Giant Platelets Not Reportable 10/27/16 05:15 Platelet Satelliting Not Reportable 10/27/16 05:15 Plt Morphology Comment Not Reportable 10/27/16 05:15 RBC Morphology Not Reportable 10/27/16 05:15 Dimorphic RBCs Not Reportable 10/27/16 05:15 Polychromasia Few 10/27/16 05:15 Hypochromasia 1+ 10/27/16 05:15 Poikilocytosis Not Reportable 10/27/16 05:15 Anisocytosis 1+ 10/27/16 05:15 Microcytosis Not Reportable 10/27/16 05:15 Macrocytosis Not Reportable 10/27/16 05:15 Spherocytes Not Reportable 10/27/16 05:15 Pappenheimer Bodies Not Reportable 10/27/16 05:15 Sickle Cells Not Reportable 10/27/16 05:15 Target Cells 1+ 10/27/16 05:15 Tear Drop Cells Not Reportable 10/27/16 05:15 Ovalocytes Not Reportable 10/27/16 05:15 Stomatocytes Few 10/27/16 05:15 Helmet Cells Not Reportable 10/27/16 05:15 [place] Bodies Not Reportable 10/27/16 05:15 [place] Rings Not Reportable 10/27/16 05:15 [place] Cells Not Reportable 10/27/16 05:15 Bite Cells Not Reportable 10/27/16 05:15 Crenated Cell Not Reportable 10/27/16 05:15 Elliptocytes Not Reportable 10/27/16 05:15 Acanthocytes (Spur) Not Reportable 10/27/16 05:15 Rouleaux Not Reportable 10/27/16 05:15 Hemoglobin C Crystals Not Reportable 10/27/16 05:15 Schistocytes Not Reportable 10/27/16 05:15 Malaria parasites Not Reportable 10/27/16 05:15 [place] Bodies Not Reportable 10/27/16 05:15 Hem Pathologist Commnt No 10/27/16 05:15 PT 22.8 Sec. (12.2-14.9) H 10/27/16 05:15 INR 1.90 (0.87-1.13) H 10/27/16 05:15 APTT 39.9 Sec. (24.2-36.6) H 10/21/16 05:46 Sodium 141 mmol/L (137-145) 10/27/16 05:15 Potassium 3.3 mmol/L (3.6-5.0) L 10/27/16 05:15 Chloride 91.0 mmol/L (98-107) L 10/27/16 05:15 Carbon Dioxide 40 mmol/L (22-30) H 10/27/16 05:15 Anion Gap 13 mmol/L 10/27/16 05:15 BUN 44 mg/dL (7-17) H 10/27/16 05:15 Creatinine 1.4 mg/dL (0.7-1.2) H 10/27/16 05:15 Estimated GFR 45 ml/min 10/27/16 05:15 BUN/Creatinine Ratio 31.42 % 10/27/16 05:15 Glucose 113 mg/dL (65-100) H 10/27/16 05:15 POC Glucose 110 (70-105) H 10/27/16 12:18 Calcium 8.2 mg/dL (8.4-10.2) L 10/27/16 05:15 Phosphorus 3.50 mg/dL (2.5-4.5) 10/23/16 08:38 Magnesium 1.70 mg/dL (1.7-2.3) 10/27/16 05:15 Total Bilirubin 1.50 mg/dL (0.1-1.2) H 10/26/16 05:08 AST 33 units/L (5-40) 10/26/16 05:08 ALT 14 units/L (7-56) 10/26/16 05:08 Alkaline Phosphatase 80 units/L (35-129) 10/26/16 05:08 Ammonia 37.0 umol/L (25-60) 10/21/16 11:48 Total Creatine Kinase 132 units/L (30-135) 10/20/16 18:00 Troponin T 0.024 ng/mL (0.00-0.029) 10/20/16 18:00 NT-Pro-B Natriuret Pep 6946 pg/mL (0-900) H 10/20/16 18:00 Total Protein 6.4 g/dL (6.3-8.2) 10/26/16 05:08 Albumin 2.0 g/dL (3.9-5) L 10/26/16 05:08 Albumin/Globulin Ratio 0.5 % 10/26/16 05:08 Urine Color Straw (Yellow) 10/22/16 06:35 Urine Turbidity Clear (Clear) 10/22/16 06:35 Urine pH 6.0 (5.0-7.0) 10/22/16 06:35 Ur Specific [place] 1.006 (1.003-1.030) 10/22/16 06:35 Urine Protein <15 mg/dl mg/dL (Negative) 10/22/16 06:35 Urine Glucose (UA) Neg mg/dL (Negative) 10/22/16 06:35 Urine Ketones Neg mg/dL (Negative) 10/22/16 06:35 Urine Blood Sm (Negative) 10/22/16 06:35 Urine Nitrite Neg (Negative) 10/22/16 06:35 Urine Bilirubin Neg (Negative) 10/22/16 06:35 Urine Urobilinogen < 2.0 mg/dL (<2.0) 10/22/16 06:35 Ur Leukocyte Esterase Lg (Negative) 10/22/16 06:35 Urine WBC (Auto) 20.0 /HPF (0.0-6.0) H 10/22/16 06:35 Urine RBC (Auto) 2.0 /HPF (0.0-6.0) 10/22/16 06:35 U Epithel Cells (Auto) 1.0 /HPF (0-13.0) 10/22/16 06:35 Urine Bacteria (Auto) 1+ /HPF (Negative) 10/22/16 06:35 Urine Mucus Few /HPF 10/22/16 06:35 Urine Osmolality 333 Mosm/kg 10/22/16 06:35 Urine Creatinine 17.3 mg/dL (0.1-20.0) 10/22/16 06:35 Urine Sodium 119 mEq/L 10/22/16 06:35 Urine Total Protein 4 mg/dL (5-11.8) L 10/22/16 06:35
[2016-10-28] MEDS: TYLENOL PO PRN (00:30)
[2016-10-28] MEDS: MORPHINE IV PRN ×2 (01:27→06:00)
[2016-10-28 05:09] VITALS: BP 134/72
[2016-10-28 05:46] LABS: INR 2.36 (0.87-1.13)
[2016-10-28] MEDS: ZOFRAN IV PRN (06:43)
--- NOTE | 2016-10-28 08:15 | Discharge Summary ---
Providers - Providers Date of Admission: 10/20/16 23:51 Date of discharge: 10/28/16 Attending physician: ANDREW CARTER 10/21/16 13:32 Consult to Physician [CONS] Routine Consulting Provider: ROMAINE REECE Reason For Exam: Chronic renal failure, patient known to his group Place consult to:: Notified:: Phone number called:: [phone] Was contact made?: Yes If yes, spoke with:: ROBERTH Time called:: 13:55 10/23/16 17:21 Physical Therapy Evaluation and Treat [CONS] Routine Comment: Reason For Exam: morbid obesity/unsteady gait/DC planning 10/24/16 11:56 Consult to Physician [CONS] Routine Consulting Provider: NILESH GOYAL Reason For Exam: acaliculus cholecystitis Place consult to:: Notified:: Phone number called:: [phone] Was contact made?: Yes If yes, spoke with:: DAVIE Time called:: 13:07 Primary care physician: KERRY ALEJANDRO Hospitalization Condition: Fair Hospital course: --Metabolic alkalosis, significant improvement Management per nephrology --Acalculous cholecystitis on abdominal ultrasound No indication for any intervention at this point per surgery Tolerating diet , no symptoms , advised to follow primary GI and surgical team at [place] upon discharge Patient refused HIDA scan -- A. fib; rate controlled continue current beta blockers cardiology following --Acute on chronic diastolic congestive heart failure Cardiology evaluation noted and appreciated, rice to continue current management , no further cardiac workup --Acute on chronic kidney disease stage III Significant improvement of renal function Continue Gentle hydration, avoid nephrotoxic medications ,nephrology following --History of COPD Oxygen nebulizer treatments and IV steroids and IV antibiotics if needed --Chronic anticoagulation with Coumadin, INR therapeutic between 2 and 3 --Moderate mitral stenosis --History of hepatitis C --Morbid obesity; counseling and patient strongly advised diet modification and exercise as tolerated and weight reduction Patient would benefit by outpatient bariatric surgical evaluation for weight reduction program when medically stable --DVT prophylaxis with Lovenox --DC planning per case management, possible placement versus home with home health at discharge --Full CODE STATUS Physical therapy occupational therapy Possible discharge home with home health tomorrow Disposition: [id number] HOME UNDER HOME HLTH Time spent for discharge: 32 min Core Measure Documentation - Palliative Care Palliative Care/ Comfort Measures: Not Applicable - Core Measures Any of the following diagnoses?: none Exam - Constitutional Vitals: Temp Pulse Resp BP Pulse Ox 98.4 F 75 18 134/72 97 10/28/16 05:08 10/28/16 05:08 10/28/16 05:08 10/28/16 05:08 10/28/16 05:08 General appearance: Present: no acute distress, obese (morbidly obese) - EENT Eyes: Present: PERRL, EOM intact - Neck Neck: Present: supple - Respiratory Respiratory effort: normal Respiratory: bilateral: diminished, negative: rales, rhonchi, wheezing - Cardiovascular Rhythm: irregularly irregular Heart Sounds: Present: S1 & S2 - Extremities Extremity abnormal: edema, other (obese) - Abdominal General gastrointestinal: Present: soft, non-tender, non-distended, normal bowel sounds, other (obese) - Integumentary Integumentary: Present: clear, warm - Musculoskeletal Musculoskeletal: strength equal bilaterally - Psychiatric Psychiatric: appropriate mood/affect, cooperative - Neurologic Neurologic: moves all extremities Plan Activity: advance as tolerated, fall precautions Diet: low salt, other (cardiac diet) Special Instructions: physical therapy Durable Medical Equipment Needed Upon Discharge: Oxygen Follow up with: PRIMARY CARE, [Referring] - 3-5 Days SAV DUNCAN MD [Staff Physician] - 7 Days NILESH GOYAL MD [Staff Physician] - 7 Days RANJEET VASQUEZ MD [Staff Physician] - 7 Days Forms: Warfarin Discharge Instruction Prescriptions: Bumetanide [Bumex 1 mg tab] 2 mg PO QDAY #30 tablet Carvedilol [Coreg] 25 mg PO BID #60 tablet Levofloxacin [Levaquin TAB] 250 mg PO Q24HR #7 tablet Metolazone [Zaroxolyn] 5 mg PO QDAY #30 tablet Potassium Chloride [K-Dur] 20 meq PO QDAY #10 tablet Warfarin [Coumadin] 3 mg PO DAILY@1700 #30 tablet
--- NOTE | 2016-10-28 09:13 | Progress Note ---
Assessment and Plan (1) Acute kidney failure Current Visit: Yes Status: Acute Plan to address problem: CR now stable 1.4 (peak 2.7). Continue Bumex/metolazone PO Follow up in 1 week in clinic for further adjustment of her medications. Ok for d/c home from renal perspective (2) Acute exacerbation of chronic bronchitis Current Visit: Yes Status: Acute Plan to address problem: Management per primary team (3) Chronic kidney disease, stage III (moderate) Current Visit: Yes Status: Acute Plan to address problem: Avoid potential nephrotoxins. (4) Acute on chronic diastolic heart failure Current Visit: Yes Status: Acute Plan to address problem: Improving, Continue gentle diuresis with PO diuretics (5) Hypertensive chronic kidney disease with stage 1 through stage 4 chronic kidney disease, or unspecified chronic kidney disease Current Visit: Yes Status: Acute Plan to address problem: Follow-up blood pressure on current medications (6) Hypokalemia Current Visit: Yes Status: Acute Qualifiers: Hepatic cirrhosis type: H Ascites presence: A Plan to address problem: Repleted potassium PO (7) Metabolic alkalosis Current Visit: Yes Status: Acute Plan to address problem: Improving(serum bicarb decreased from 44 to 39 today) Her Bumex dose is reduced Discussed with Dr Santillan Subjective Date of service: 10/28/16 Principal diagnosis: acute kidney injury Interval history: Multiple body aches Objective - Exam Narrative Exam: Elderly -[place] female lying in bed in no acute distress HEENT normocephalic atraumatic, pupils equal reactive to light, pink, clear oropharynx Neck supple, no thyromegaly no jugular venous distention CVS S1-S2 regular rate rhythm without murmur, rub or gallop Chest diminished breath sounds, few rales b/L Abdomen obese, soft, right upper quadrant tenderness, no organomegaly no bruit bowel sounds present Extremities 2+ edema no cyanosis or clubbing--edema improving Genitourinary deferred Neuro awake, alert oriented x3 no gross deficit - Vital Signs Vital signs: Vital Signs - 12hr 10/27/16 10/27/16 10/27/16 22:08 23:51 23:53 Temperature 98.9 F Pulse Rate 80 51 L 51 L Respiratory 18 Rate Blood Pressure 129/86 137/82 O2 Sat by Pulse 96 Oximetry 10/28/16 10/28/16 10/28/16 00:30 01:27 04:15 Temperature Pulse Rate Respiratory 20 20 22 Rate Blood Pressure O2 Sat by Pulse Oximetry 10/28/16 10/28/16 05:08 09:09 Temperature 98.4 F 98.5 F Pulse Rate 75 78 Respiratory 18 18 Rate Blood Pressure 134/72 134/72 O2 Sat by Pulse 97 100 Oximetry - Lab 10/27/16 05:15 10/28/16 09:26 Most recent lab results Calcium 8.2 mg/dL (8.4-10.2) L 10/27/16 05:15 Phosphorus 3.50 mg/dL (2.5-4.5) 10/23/16 08:38 Magnesium 1.70 mg/dL (1.7-2.3) 10/27/16 05:15 Urine Creatinine 17.3 mg/dL (0.1-20.0) 10/22/16 06:35 Urine Sodium 119 mEq/L 10/22/16 06:35 Urine Total Protein 4 mg/dL (5-11.8) L 10/22/16 06:35
[2016-10-28] MEDS: NOVOLOG SUB-Q SCH (10:20)
[2016-10-28] MEDS: COREG PO SCH (10:21)
[2016-10-28] MEDS: ZAROXOLYN PO SCH (10:21)
[2016-10-28] MEDS: K-DUR PO SCH (10:21)
[2016-10-28] MEDS: LEVAQUIN PO SCH (10:22)
[2016-10-28] MEDS: BUMEX PO SCH (10:22)
[2016-10-28 10:24] LABS: BUN/Creatinine Ratio 27.85; Calcium 8.1 mg/dL (8.4-10.2); Chloride 92.4 mmol/L (98-107); Potassium 3.3 mmol/L (3.6-5.0)
--- NOTE | 2016-10-28 11:51 | Progress Note ---
Assessment and Plan Acute on chronic Diastolic heart failure with secondary pulmonary hypertension Cholecystitis, non-calculus on abd u/s COPD Hypertension Hx of Hepatitis C induced liver cirrhosis Morbidly obese Chronic renal failure Mitral stenosis -moderate Chronic persistent atrial fibrillation rate controlled on coumadin therapy as an outpatient Recommendations: Medical therapy for heart failure with preserved ejection fraction. Fluid/sodium restriction. Conservative cardiac management. Subjective Date of service: 10/28/16 Principal diagnosis: acute kidney injury Interval history: Patient denies chest pain and shortness of breath. For planned discharge home today. Objective Vital Signs Temp Pulse Resp Resp BP Pulse Ox 10/28/16 10:00 96 H 16 10/28/16 09:09 98.5 F 78 18 134/72 100 10/28/16 05:08 98.4 F 75 18 134/72 97 10/28/16 04:15 22 10/28/16 01:27 20 10/28/16 00:30 20 10/27/16 23:53 51 L 10/27/16 23:51 98.9 F 51 L 18 137/82 96 10/27/16 22:08 80 129/86 10/27/16 20:43 95 10/27/16 20:16 99.1 F 86 18 186/74 95 10/27/16 20:03 98.4 F 80 22 129/86 98 10/27/16 19:33 20 10/27/16 18:33 20 10/27/16 13:04 20 10/27/16 13:00 98.8 F 80 18 121/77 10/27/16 12:34 22 - Physical Examination General: No Apparent Distress, Other (obese) HEENT: Positive: PERRL Cardiac: Positive: irregularly irregular Extremities: Present: +1 Edema - Labs and Meds Coagulation 10/28/16 Range/Units 05:04 PT 25.9 H (12.2-14.9) Sec. INR 2.36 H (0.87-1.13) Comprehensive Metabolic Panel 10/28/16 Range/Units 09:26 Sodium 143 (137-145) mmol/L Potassium 3.3 L (3.6-5.0) mmol/L Chloride 92.4 L (98-107) mmol/L Carbon Dioxide 39 H (22-30) mmol/L BUN 39 H (7-17) mg/dL Creatinine 1.4 H (0.7-1.2) mg/dL Glucose 122 H (65-100) mg/dL Calcium 8.1 L (8.4-10.2) mg/dL - Imaging and Cardiology EKG: image reviewed
== END 2016-10-28 17:15 | disposition home health service (06) | DRG 291 ==
LOC: ED 16:52 → 4A 23:51
PROVIDERS: ADMIT Internal Medicine; ATTEND Internal Medicine
DX: I13.0 Hypertensive heart and chronic kidney disease with heart failure and stage 1 through stage 4 chronic kidney disease, or unspecified chronic kidney disease (principal); I50.43 Acute on chronic combined systolic (congestive) and diastolic (congestive) heart failure; N17.9 Acute kidney failure, unspecified; J44.0 Chronic obstructive pulmonary disease with (acute) lower respiratory infection; E87.0 Hyperosmolality and hypernatremia; E87.3 Alkalosis; Z68.44 Body mass index [BMI] 60.0-69.9, adult; N18.4 Chronic kidney disease, stage 4 (severe); K81.9 Cholecystitis, unspecified; J20.9 Acute bronchitis, unspecified; I05.0 Rheumatic mitral stenosis; E66.01 Morbid (severe) obesity due to excess calories; G89.29 Other chronic pain; I27.2 Other secondary pulmonary hypertension; I48.2 Chronic atrial fibrillation; E87.6 Hypokalemia; Z53.29 Procedure and treatment not carried out because of patient's decision for other reasons; R26.81 Unsteadiness on feet; K74.60 Unspecified cirrhosis of liver; B18.2 Chronic viral hepatitis C; M54.9 Dorsalgia, unspecified; Z74.01 Bed confinement status; Z82.49 Family history of ischemic heart disease and other diseases of the circulatory system; Z87.891 Personal history of nicotine dependence; Z79.01 Long term (current) use of anticoagulants; Z79.899 Other long term (current) drug therapy; Z71.3 Dietary counseling and surveillance; Z90.710 Acquired absence of both cervix and uterus; Z98.51 Tubal ligation status; Z80.9 Family history of malignant neoplasm, unspecified; Z88.8 Allergy status to other drugs, medicaments and biological substances; Z88.6 Allergy status to analgesic agent
CPT/HCPCS: 36415; 71010; 76705; 80048; 80053; 81001; 82140; 82550; 82570; 82962; 83735; 83880; 83935; 84100; 84156; 84300; 84484; 85007; 85025; 85610; 85730; 87205; 93005; 93010; 93970; 94760; 96374; 96375; G8978-GP; G8979-GP; J1120; J1170; J1815; J2270; J2405